=== PATIENT | male | born 1950 | race Caucasian/White ===

== ENCOUNTER 2024-07-15 12:49 | Outpatient (CLI) | payer MEDICARE, BC, SELFPAY ==
--- OUTSIDE RECORDS SUMMARY | 2024-07-15 13:01 | XMS_ITS | Clinical Summary ---
Author Organization [facility] Address [address], [facility] [address] [place] [address] Phone Care Team Providers Care Siebel Crm Developer Name Role Phone Gokul Sherman MD Unavailable Allergies No known active allergies Medications valACYclovir (VALTREX) 1 GM Tablet Take 1 g by mouth 2 times daily. 6 Active Tadalafil (CIALIS) 5 MG Tablet Take 5 mg by mouth daily. 7 Active fluticasone (FLONASE) 50 MCG/ACT Suspension USE 2 SPRAYS IN EACH NOSTRIL ONCE DAILY 3 8 Active aspirin 81 MG Chewable Tablet Take by mouth. 3 Active dilTIAZem (CARDIZEM CD) 240 MG CAPSULE SR 24 HR Take by mouth daily. 4 Active Methotrexate Sodium (METHOTREXATE, PF,) 50 MG/2ML Solution Take 25 mg by mouth once a week. Active folic acid (FOLVITE) 1 MG Tablet Take 1 mg by mouth daily. 6 Active hydroxychloroqu ine (PLAQUENIL) 200 MG Tablet Take 200 mg by mouth 2 times daily. Active nabumetone (RELAFEN) 500 MG Tablet Take 500 mg by mouth 2 times daily. Active InFLIXimab-dyyb (INFLECTRA) 100 MG Recon Soln by Intravenous route. Active amoxicillin (AMOXIL) 500 MG Capsule TAKE ONE CAPSULE BY MOUTH 3 TIMES A DAY 8 Active mesalamine (LIALDA) 1.2 GM Tablet Delayed Response Take 4 Tabs by mouth daily. Active Loratadine 10 MG Capsule Take by mouth as needed. Active vitamin E (TOCOPHEROL) 400 UNIT Capsule Take 400 Units by mouth daily. 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 Family History Medical History Relation Name Comments Alcohol Abuse Brother Cancer Mother Colon Cancer Mother Relation Name Status Comments Brother Father Mother Social History Tobacco Use Types Packs/Day Years Used Date Smoking Tobacco: Never Smokeless Tobacco: Never Alcohol Use Standard Drinks/Week Comments No 0 (1 standard drink = 0.6 oz pur e alcohol) PHQ-2 Answer Date Recorded PHQ-2 Score 0 02/19/2019 Sex and Gender Information Value Date Recorded Sex Assigned at Not on file Legal Sex Male 1:49 PM TIRE FINISHER Gender Identity Not on file Sexual Orientation Not on file Last Filed Vital Signs Vital Sign Reading Time Taken Comments Blood Pressure 124/70 05/21/2018 8:52 AM TIRE FINISHER Pulse 64 05/21/2018 8:52 AM TIRE FINISHER Temperature 37 C (98.6 F) 05/21/2018 8:52 AM TIRE FINISHER Respiratory Rate - - Oxygen Saturation 96% 05/21/2018 8:52 AM TIRE FINISHER Inhaled Oxygen Concentration - - Weight 75.8 kg (167 lb) 05/21/2018 8:52 AM TIRE FINISHER Height - - Body Mass Index - - Plan of Treatment Health Maintenance Due Date Last Done Comments Hepatitis C Virus (HCV) Screening 1950 TdaP Immunization 1950 SARS-COV-2 Immunization (#1) 1956 Zoster Immunization (1 of 2) 1970 Colonoscopy 1996 Colorectal Cancer Screening 1996 Cologuard 2001 Immunochemical Fecal Occult Blood 2001 Pneumococcal Immunization (5 0+ years) (1 of 1 - PCV) 2001 Respiratory Syncytial Virus (RSV) Immunization (Adult) (1 - Risk 60-74 years 1-dose series) 2011 Influenza Immunization (#1) 2024 Hepatitis B Immunization Aged Out No longer eligible based on patient's age to complete this topic Meningococcal Immunization (ACWY) Aged Out No longer eligible based on patient's age to complete this topic Rotavirus Immunization Aged Out No lo nger eligible based on patient's age to complete this topic Insurance MEDICARE [facility] Care Teams Siebel Crm Developer Relationship Specialty Start Date End Date Gokul Sherman MD [address] [facility] [address] [place] [address] Consulting Physician Oncology 05/08/18
--- OUTSIDE RECORDS SUMMARY | 2024-07-15 13:01 | XMS_ITS | Encounter Summary ---
Author Organization [facility] Address [facility] [place] [address] Care Team Providers Care Readiness Paraprofessional Name Role Phone Rui Le MD Primary Care Provider + [phone] Gt Gore MD Unavailable [phone] Rui Le MD Primary Care Provider + [phone] Jorge Barnett APRN Unavailable [phone] Tahir Devlin MD Primary Care Provider + [phone] Mohan Rodriguez MD Unavailable [phone] Gurmeet Zhou MD Unavailable Encounter Details Date Type Department Care Team (Late st Contact Info) Description 06/30/2015 Abstract [facility] [address] [place] [address] Gt Gore MD [address] [place] [address] Social History Tobacco Use Types Packs/Day Years Used Date Smoking Tobacco: Former Alcohol Use Standard Drinks/Week Comments No 0 (1 standard drink = 0.6 oz pur e alcohol) Sex and Gender Information Value Date Recorded Sex Assigned at Male 04/13/2018 10:17 AM CLAIMS AGENT RIGHT OF WAY Legal Sex Male 10:45 PM CDT Gender Identity Male 04/13/2018 10:17 AM CLAIMS AGENT [address] OF [address] Sexual Orientation Not on file 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 Not on file Not on file documented as of this encounter Plan of Treatment Not on file documented as of this encounter Visit Diagnoses Not on filedocumented in this encounter Additional Health Concerns Infection Onset Date Last Indicated Resolved Time COVID-19 Rule Out 04/20/2024 04/20/2024 04/20/2024 8:56 AM CLAIMS AGENT [address] OF [address] COVID-19 Rule Out 06/12/2024 06/12/2024 06/12/2024 12:05 PM CLAIMS AGENT RIGHT OF [address] documented as of this encounter Care Teams Readiness Paraprofessional Relationship Specialty Start Date End Date Rui Le MD PCP - General FAMILY PRACTICE 06/21/16 06/13/17 Rui Le MD [address] [place] [address] [place] [address] PCP - General FAMILY PRACTICE 06/14/17 11/06/19 Tahir Devlin MD [address] [place] [address] [place] [address] PCP - General FAMILY PRACTICE 11/07/19 07/09/24 Gt Gore MD [address] [place] [address] CARDIOVASCULAR DISEASE 06/14/17 Jorge Barnett APRN [address] [place] [address] [address] [place] [address] Nurse Practitioner NURSE PRACTITIONER 07/17/18 Mohan Rodriguez MD [address] [place] [address] Physician RHEUMATOLOGY 01/27/22 Gurmeet Zhou MD [address] [place] [address] Consulting Physician GASTROENTEROLOGY 01/27/22 documented as of this encounter
--- OUTSIDE RECORDS SUMMARY | 2024-07-15 13:01 | XMS_ITS | Encounter Summary ---
Author Organization [facility] Address [facility] [place] [address] Care Team Providers Care Yeast Maker Name Role Phone Rui Le MD Primary Care Provider + [phone] Gt Gore MD Unavailable [phone] Rui Le MD Primary Care Provider + [phone] Jorge Barnett APRN Unavailable [phone] Tahir Devlin MD Primary Care Provider + [phone] Mohan Rodriguez MD Unavailable [phone] Gurmeet Zhou MD Unavailable Encounter Details Date Type Department Care Team (Late st Contact Info) Description 06/10/2016 Abstract [facility] [address] [place] [id number] Natasha Johnson RN Social History Tobacco Use Types Packs/Day Years Used Date Smoking Tobacco: Former Alcohol Use Standard Drinks/Week Comments No 0 (1 standard drink = 0.6 oz pur e alcohol) Sex and Gender Information Value Date Recorded Sex Assigned at Male 04/13/2018 10:17 AM SUPERVISOR [employer] Legal Sex Male 10:45 PM CDT Gender Identity Male 04/13/2018 10:17 AM SUPERVISOR [employer] Sexual Orientation Not on file 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 Not on file Not on file documented as of this encounter Plan of Treatment Not on file documented as of this encounter Visit Diagnoses Not on filedocumented in this encounter Additional Health Concerns Infection Onset Date Last Indicated Resolved Time COVID-19 Rule Out 04/20/2024 04/20/2024 04/20/2024 8:56 AM SUPERVISOR [employer] COVID-19 Rule Out 06/12/2024 06/12/2024 06/12/2024 12:05 PM SUPERVISOR [employer] documented as of this encounter Care Teams Yeast Maker Relationship Specialty Start Date End Date Rui Le MD PCP - General FAMILY PRACTICE 06/21/16 06/13/17 Rui Le MD [address] [place], [place] [id number] PCP - General FAMILY PRACTICE 06/14/17 11/06/19 Tahir Devlin MD [address] [place] [address] PCP - General FAMILY PRACTICE 11/07/19 07/09/24 Gt Gore MD [address] [place] [address] CARDIOVASCULAR DISEASE 06/14/17 Jorge Barnett APRN [address] [facility] [address] [place] [address] Nurse Practitioner NURSE PRACTITIONER 07/17/18 Mohan Rodriguez MD [address] [address] Physician RHEUMATOLOGY 01/27/22 Gurmeet Zhou MD [address] [address] Consulting Physician GASTROENTEROLOGY 01/27/22 documented as of this encounter
--- OUTSIDE RECORDS SUMMARY | 2024-07-15 13:01 | XMS_ITS | Clinical Summary ---
Author Organization [facility] Address [address] [place] [address] Care Team Providers Care Support Service Tech Name Role Phone Maicol Freeman MD Unavailable [phone] Jorge Barnett APRN Unavailable [phone] Mohan Rodriguez MD Unavailable [phone] Gurmeet Zhou MD Unavailable Allergies No known active allergies Medications folic acid 1 MG tablet Take 1 tablet (1 mg total) by mouth daily. 06/30/19 16 Active nabumetone 500 MG tablet Take 1 tablet (500 mg total) by mouth 2 (two) times daily. Active B-D INS SYR ULTRAFINE 1CC/30G 30G X 1/2 1 ML Misc USE WEEKLY WITH METHOTREXATE 0 03/04/20 18 Active methotrexate 50 MG/2ML injection TAKE 1 ML WEEKLY IN JUICE 10/03/19 20 Active docusate sodium (COLACE) 100 MG capsule Take 1 capsule (100 mg total) by mouth daily as needed for Constipation. Active EQ FIBER SUPPLEMENT OR Active Certolizumab Pegol (CIMZIA PREFILLED SC) Inject 2 each into the skin monthly. Active dilTIAZem CD (CARDIZEM CD) 240 MG 24 hr capsuleIndication s:Benign essential hypertension,PAT (paroxysmal atrial tachycardia) (CMS/HCC HHS/HCC),SVT (supraventricular tachycardia) (CMS/HCC HHS/HCC) Take 1 capsule (240 mg total) by mouth daily. 90 capsule 1 01/03/20 24 Active dilTIAZem (CARDIZEM) 120 MG tabletIndications :Benign essential hypertension,PAT (paroxysmal atrial tachycardia) (CMS/HCC HHS/HCC),SVT (supraventricular tachycardia) (CMS/HCC HHS/HCC) Take 1 tablet (120 mg total) by mouth nightly at bedtime. 90 tablet 1 01/03/20 24 Active atorvastatin (LIPITOR) 40 MG tabletIndications :Mixed hyperlipidemia Take 1 tablet (40 mg total) by mouth nightly at bedtime. 90 tablet 1 01/03/20 24 Active loratadine (CLARITIN) 10 MG tabletIndications :Environmental allergies Take 1 tablet (10 mg total) by mouth daily. 90 tablet 1 01/03/20 24 Active fluticasone propionate (FLONASE) 50 MCG/ACT nasal sprayIndications: Environmental allergies INHALE 2 SPRAYS IN EACH NOSTRIL EVERY DAY 48 mL 1 01/03/20 24 Active tadalafil (CIALIS) 5 MG tabletIndications :Benign prostatic hyperplasia with urinary frequency,Erectil e dysfunction, unspecified erectile dysfunction type Take 1 tablet (5 mg total) by mouth daily. 90 tablet 1 01/03/20 24 Active valACYclovir (VALTREX) 500 MG tabletIndications :Herpes Take 1 tablet (500 mg total) by mouth daily. 90 tablet 1 01/03/20 24 Active aspirin 81 MG chewable tabletIndications :PAT (paroxysmal atrial tachycardia) (CMS/HCC HHS/HCC),SVT (supraventricular tachycardia) ([facility] HHS/HCC) Chew 1 tablet (81 mg total) by mouth daily. 90 tablet 1 01/03/20 24 Active dextromethorphan- guaiFENesin ER (MUCINEX DM) 30-600 MG TABLET SR 12 HR 12 hr tabletIndications :Acute cough,Fluid level behind tympanic membrane of both ears,Acute viral bronchitis Take 1 tablet by mouth every 12 (twelve) hours as needed. 28 tablet 06/12/19 25 Active methylPREDNISolon e, MAGDA, (MEDROL DOSEPAK) 4 MG tabletIndications :Acute sore throat,Acute cough,Fluid level behind tympanic membrane of both ears,Acute viral bronchitis Take 1 tablet (4 mg total) by mouth daily. 6 TABLETS ON DAY ONE, 5 TABLETS DAY TWO, 4 TABLETS DAY THREE, 3 TABLETS DAY FOUR, 2 TABLETS DAY FIVE, AND 1 TABLET DAY SIX 1 each 06/12/19 25 Active mesalamine EC (LIALDA) 1.2 g Tab EC tabletIndications :IBD (inflammatory bowel disease) Take 2 tablets (2.4 g total) by mouth daily with breakfast. with food 180 tablet 3 07/03/19 25 026 Active certolizumab pegol (CIMZIA) 2 X 200 MG injectionIndicati ons:IBD (inflammatory bowel disease) Inject 1 mL (200 mg total) into the skin every 28 days. 1 kit 11 07/03/19 25 Active mesalamine EC (LIALDA) 1.2 g Tab EC tabletIndications :IBD (inflammatory bowel disease) TAKE 2 TABLETS (2.4 G TOTAL) BY MOUTH DAILY WITH BREAKFAST. WITH FOOD 180 tablet 04/08/20 24 025 Discontinu ed(Reorder ) benzonatate (TESSALON PERLES) 100 MG capsuleIndication s:Acute cough,Acute viral bronchitis Take 1 capsule (100 mg total) by mouth 3 (three) times daily as needed for Cough. 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 History of umbilical hernia 04/13/2018 Rheumatoid arthritis ([facility]) 7 Overview (04/13/2018): Date Onset: 12/19/2016 Hypothyroidism 06/15/2015 Overview (04/13/2018): Date Onset: 06/15/2015 BPH (benign prostatic hyperplasia) 06/04/2014 Overview (04/13/2018): Date Onset: 06/04/2014 Erectile dysfunction 04/05/2013 Overview (04/13/2018): Date Onset: 04/05/2013 Date Onset: 06/15/2015 Benign essential hypertension 06/30/2011 Overview (04/13/2018): Date Onset: 12/19/2016 Raynaud's syndrome 06/30/2011 Mixed hyperlipidemia 06/30/2011 PAT (paroxysmal atrial tachycardia) ([facility] HHS /HCC) SVT (supraventricular tachycardia) ([facility]) Resolved Problems Problem Noted Date Diagnosed Date Resolved Date Squamous cell carcinoma in s itu (SCCIS) of skin 05/21/2018 11/07/2019 Prostatism 06/15/2015 11/07/2019 Overview (04/13/2018): Date Onset: 06/15/2015 Hyperlipidemia 11/07/2019 HTN (hypertension) 0 Encounters Date Type Department Care Team Description [facility] [address], [address] [place] [address] Gurmeet Zhou MD Prior Authorization 07/03/2024 2:20 PM NUCLEAR MEDICINE PET CT TECHNOLOGIST Office Visit [facility] [address] [place] [address] Gurmeet Zhou MD Follow Up (Yearly follow up) 07/03/2024 Travel 06/17/[address] [place] [address] Tahir Devlin MD Follow Up Call 06/12/2024 12:00 PM NUCLEAR MEDICINE PET CT TECHNOLOGIST Office Visit [address] [place] [address] Adri Reis, Tahir Alejandro MD Cough (Pt states all his sx have come and gone since ); Runny Nose; Congestion (head); Sore Throat (Pt states it comes and goes with the cough. ) 06/12/2024 Travel 05/27/2024 1:48 PM [address]AR MEDICINE PET CT TECHNOLOGIST - 05/27/2024 11:59 PM NUCLEAR MEDICINE PET CT TECHNOLOGIST Hospital Encounter [facility] [address] [place] [address] Mohan Rodriguez MD Discharge Disposition: Home or Self Care (Routine Discharge) 05/27/2024 Orders Only [facility] [address] [place] [address] Mohan Rodriguez MD 05/27/2024 Travel 05/06/2024 11:35 AM NUCLEAR MEDICINE PET CT TECHNOLOGIST - 05/06/2024 11:59 PM NUCLEAR MEDICINE PET CT TECHNOLOGIST Hospital Encounter [facility] [address] [place] [address] Mohan Rodriguez MD Discharge Disposition: Home or Self Care (Routine Discharge) 05/06/2024 Orders Only [facility] [address] [place] [address] Mohan Rodriguez MD 05/06/2024 Travel 04/20/2024 8:00 AM NUCLEAR MEDICINE PET CT TECHNOLOGIST Office Visit [facility] [address] [place] [address] Shantal Devlin V, PARLIAMENTARY ARCHIVIST- Cough (Noted for 5 days. ); Post Nasal Drainage; Ear Pressure; Ear Concern (Left ear pain/); Body Aches 04/20/2024 Travel from Last 3 Months Immunizations Name Administration Dates Next Due Influenza (Generic) 02/26/2018,04/26/2016,2014 Influenza Adult (Generic) 05/15/2019,04/26/2016 Pneumococcal (Pneumovax 23) 02/26/2018 Pneumococcal (Prevnar 13) 11/07/2019 Shingrix 11/21/2018 Zoster (Zostavax) 50982 Unt/0.65Ml 04/05/2013 Zoster Unspecified Formulation 08/06/2018 Family History Medical History Relation Comments Colon Cancer Mother Relation Status Comments Brother 1 CAD, PCI Brother 2 Alive CABG x2 Brother 3 Alive Father (Age 69) colon infectio n Mother (Age 29) Colon Cancer Social History Tobacco Use Types Packs/Day Years Used Date Smoking Tobacco: Former Cigarettes Q uit: 06/21/1998 Smokeless Tobacco: Never Tobacco Cessation:Counseling Given: Yes Alcohol Use Standard Drinks/Week Comments No 0 (1 standard drink = 0.6 oz pur e alcohol) PHQ-2 Answer Date Recorded Patient Health Questionnaire-2 Score 0 07/03/2024 Sex and Gender Information Value Date Recorded Sex Assigned at Male 04/13/2018 10:17 AM NUCLEAR MEDICINE PET CT TECHNOLOGIST Legal Sex Male 10:45 PM CDT Gender Identity Male 04/13/2018 10:17 AM NUCLEAR MEDICINE PET CT TECHNOLOGIST Sexual Orientation Not on file 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 Not on file Not on file Not on file Not on file Not on file Not on file Not on file Last Filed Vital Signs Vital Sign Reading Time Taken Comments Blood Pressure 138/71 07/03/2024 2:28 PM NUCLEAR MEDICINE PET CT TECHNOLOGIST Pulse 72 07/03/2024 2:28 PM NUCLEAR MEDICINE PET CT TECHNOLOGIST Temperature 37.7 C (99.8 F) 07/03/2024 2:28 PM NUCLEAR MEDICINE PET CT TECHNOLOGIST Respiratory Rate 12 06/12/2024 11:30 AM NUCLEAR MEDICINE PET CT TECHNOLOGIST Oxygen Saturation 98% 07/03/2024 2:28 PM NUCLEAR MEDICINE PET CT TECHNOLOGIST Inhaled Oxygen Concentration - - Weight 77.1 kg (170 lb) 07/03/2024 2:28 PM NUCLEAR MEDICINE PET CT TECHNOLOGIST Height 167.6 cm (5' 6 ) 07/03/2024 2:28 PM NUCLEAR MEDICINE PET CT TECHNOLOGIST Body Mass Index 27.44 07/03/2024 2:28 PM NUCLEAR MEDICINE PET CT TECHNOLOGIST Plan of Treatment Health Maintenance Due Date Last Done Comments Hepatitis C 1969 DTaP, Tdap and Td Vaccines (1 - Tdap) 1970 RSV Immunization or 60+ Years (1 - Risk 60-74 years 1-dose series) 2011 Annual Medicare Wellness Visit 2016 Zoster Vaccines (3 of 3) 01/16/2019 019, 08/06/2018, 08/06/2018, Additional history exists COVID-19 Vaccine ( season) 2024 Influenza Adult (#1) 2024 05/15/2019, 02/26/2018, 04/26/2016, Additional history exists Colorectal Cancer Screening Colonoscopy (10 Years) 03/14/2033 03/14/2023, 01/22/2019 AAA SCREENING Completed 06/21/2016 Pneumococcal Vaccine: 65+ Years Completed 11/07/2019, 02/26/2018 PHQ-2 (Physician [place]) Completed 07/03/2024 Meningococcal B Vaccine Aged Out No l onger eligible based on patient's age to complete this topic Meningococcal Vaccine Aged Out No enrique momo eligible based on patient's age to complete this topic RSV Immunizations Under 20 Months Aged Out No longer eligible based on patient's age to complete this topic Medical Devices Implanted Type Area Geophysical Support Specialist Device Identifier Shelf Expiration Date Model / Serial / Lot Clip Resolution 360 Deg 2.8mm X 235cm - [id number] Implanted:Qty : 2 on 03/14/2023 by Gurmeet Zhou MD at [facility] Clip Implant Nex[employer] RIGO 02/14/2025 [id number] / / [id number] Plug Large Mesh Perfix 1.6 X 1.90 - [id number] Implanted:Qty : 1 on 03/28/2022 by Bonilla Gupta MD at [facility] Mesh [employer] [id number] 06/01/2025 [id number] / / [id number] Mesh Bard Plug Xlarge [id number] - [id number] Implanted:Qty : 1 on 03/28/2022 by Bonilla Gupta MD at [facility] Mesh Left: Groin [employer] [id number] 01/30/2026 [id number] / / [id number] Procedures Procedure Name Priority Date/Time Associated Diagnosis Comments CORONAVIRUS (COVID-19) INFLUENZA A & B ANTIGEN IA PANEL Routine 06/12/2024 Acute sore throat Acute cough STREP A RAPID Routine 06/12/2024 Acute sore throat RETICULOCYTE CT, AUTO STAT 05/27/2024 1:57 PM NUCLEAR MEDICINE PET CT TECHNOLOGIST Nutritional anemia CBC W/DIFF AUTOMATED STAT 05/27/2024 1:57 PM NUCLEAR MEDICINE PET CT TECHNOLOGIST Nutritional anemia VITAMIN B12 / FOLATE STAT 05/27/2024 1:57 PM NUCLEAR MEDICINE PET CT TECHNOLOGIST Nutritional anemia IRON SAT PANEL (IRON,IBC,%SAT) STAT 05/27/2024 1:57 PM NUCLEAR MEDICINE PET CT TECHNOLOGIST Nutritional anemia FERRITIN STAT 05/27/2024 1:57 PM NUCLEAR MEDICINE PET CT TECHNOLOGIST Nutritional anemia C-REACTIVE PROTEIN Routine 05/06/2024 11 :38 AM NUCLEAR MEDICINE PET CT TECHNOLOGIST Rheumatoid arthritis without rheumatoid factor, multiple sites ([facility]) SED RATE, ERYTHROCYTE (ESR) Routine 05/06/2024 11:38 AM NUCLEAR MEDICINE PET CT TECHNOLOGIST Rheumatoid arthritis without rheumatoid factor, multiple sites ([facility]) COMPREHENSIVE METABOLIC PANEL Routine 05/06/2024 11:38 AM NUCLEAR MEDICINE PET CT TECHNOLOGIST Rheumatoid arthritis without rheumatoid factor, multiple sites ([facility]) CBC W/DIFF AUTOMATED Routine 05/06/2024 11:38 AM NUCLEAR MEDICINE PET CT TECHNOLOGIST Rheumatoid arthritis without rheumatoid factor, multiple sites ([facility]) INFLUENZA A & B Routine 04/20/2024 Viral upper respiratory illness CORONAVIRUS (COVID-19) ANTIGEN Routine 04/20/2024 Viral upper respiratory illness COLONOSCOPY GENERIC (SCAN ORDER) Routine 01/22/2019 US AORTA SCREEN 06/21/2016 8:49 AM NUCLEAR MEDICINE PET CT TECHNOLOGIST from Last 3 Months or Most Recently Relevant to Health Maintenance Results * CORONAVIRUS (COVID-19) INFLUENZA A & B ANTIGEN IA PANEL (06/12/2024) CORONAVIRUS ANTIGEN IA NEGATIVE [facility] ([address] [place] INFLUENZA [facility] NE[facility]GATIVE [facility] [address] ([address]), [place] INFLUENZA B NEGATIVE NEGATIVE [facility] [address] ([address]), [place] Internal Control: [facility] [place] ([address]), [place] NASAL STRUCTURE / Unknown 06/12/2024 us Tahir Devlin MD MICROBIOLOGY - GENERAL ORDER FARHAT Final Result [facility] ([address]), [address] [address], * STREP A RAPID (06/12/2024) Pathologist [facility] RAPID STREP TEST NEGATIVE NEGATIVE [facility] ([address]), [place] Internal Control: VALID VALID [facility] ([address]), [place] STRUCTURE OF ANTERIOR PORTION OF NECK / Unknown 06/12/2024 Tahir Devlin MD MICROBIOLOGY - GENERAL ORDER FARHAT Final Result [facility] ([address]), [address] [place] [address], [place] [phone] * (ABNORMAL) VITAMIN B12 / FOLATE (05/27/2024 1:57 PM NUCLEAR MEDICINE PET CT TECHNOLOGIST) Pathologist [facility] VITAMIN B12 S/P/B 933 254 - 1,320 PG/ML 05/27/2024 8:27 PM NUC[address]AR MEDICINE PET CT TECHNOLOGIST [facility] FOLATE 37.1(H) 3.1 - 17.5 NG/ML 05/27/2024 8:27 PM NUCLEAR MEDICINE PET CT TECHNOLOGIST [facility] 05/27/2024 1:57 PM NUCLEAR MEDICINE PET CT TECHNOLOGIST Mohan Rodriguez MD LABORATORY Final Resul t [facility] [address] [place] [address], [place] [phone] * IRON SAT PANEL (IRON,IBC,%SAT) (05/27/2024 1:57 PM NUCLEAR MEDICINE PET CT TECHNOLOGIST) Pathologist [facility] IRON 86 65.0 - 175.0 MCG/DL 05/27/2024 7:45 PM NUCLEAR MEDICINE PET CT TECHNOLOGIST [facility] IRON BINDING CAPACITY 339 250 - 450 MCG/DL 05/27/2024 7:45 PM NUCLEAR MEDICINE PET CT TECHNOLOGIST [facility] IRON SATURATION 25 20 - 55 % 7:45 PM NUCLEAR MEDICINE PET CT TECHNOLOGIST [facility] 05/27/2024 1:57 PM NUCLEAR MEDICINE PET CT TECHNOLOGIST Mohan Rodriguez MD LABORATORY Final Resul t [facility] [address] [place] [address], [place] [phone] * RETICULOCYTE CT, AUTO (05/27/2024 1:57 PM NUCLEAR MEDICINE PET CT TECHNOLOGIST) RETICULOCYTE COUNT 0.9 0.4 - 3.8 % 05/27/2024 2:25 PM NUCLEAR MEDICINE PET CT TECHNOLOGIST [facility] ABSOLUTE RETICULOCYTE 0.03 0.02 - 0.13 x10'6/uL 05/27/2024 2:25 PM NUCLEAR MEDICINE PET CT TECHNOLOGIST [facility] IMMATURE RETIC FRACTION 4.2 2.3 - 13.4 % 05/27/2024 2:25 PM NUCLEAR MEDICINE PET CT TECHNOLOGIST [facility] RETIC HGB 35.0 28.2 - 36.6 PG 05/27/2024 2:25 PM NUCLEAR MEDICINE PET CT TECHNOLOGIST [facility] 05/27/2024 1:57 PM NUCLEAR MEDICINE PET CT TECHNOLOGIST Mohan Rodriguez MD LABORATORY Final Resul t Performing Organization Address City/Va Hospital/ZIP Co de Phone Number [facility] [address] [place] [address] [place] [address], * (ABNORMAL) CBC W/DIFF AUTOMATED (05/27/2024 1:57 PM NUCLEAR MEDICINE PET CT TECHNOLOGIST) Only the most recent of2 resultswithin the time period is included. WBC 6.85 4.50 - 11.00 x10'3/uL 05/27/2024 2:25 PM NUCLEAR MEDICINE PET CT TECHNOLOGIST [facility] RBC 3.72(L) 4.50 - 5.90 x10'6/uL 05/27/2024 2:25 PM NUCLEAR MEDICINE PET CT TECHNOLOGIST [facility] HGB 11.9(L) 14.0 - 18.0 G/DL 05/27/2024 2:25 PM [facility] HCT 37.4(L) 43.0 - 54.0 % 05/27/2024 2:25 PM [facility] MCV 100.5(H) 80.0 - 100.0 FL 05/27/2024 2:25 PM [facility] MCH 32.0 26.0 - 34.0 PG 05/27/2024 2:25 PM [facility] MCHC 31.8 31.0 - 37.0 G/DL 05/27/2024 2:25 PM [facility] RDW 13.2 11.6 - 14.8 % 05/27/2024 2:25 PM [facility] PLT 241 130 - 400 x10'3/uL 05/27/2024 2:25 PM [facility] MPV 9.5 7.0 - 12.0 FL 05/27/2024 2:25 PM [facility] CBC COMMENT AUTOMATED RBC MORPHOLOGY AND PLATELET EVALUATION NORMAL 05/27/2024 2:25 PM [facility] NEUTROPHILS % 52.4 40.0 - 74.0 % 05/27/2024 2:25 PM [facility] LYMPHOCYTES % 34.5 14.0 - 46.0 % 05/27/2024 2:25 PM [facility] MONOCYTES % 10.1 4.0 - 13.0 % 05/27/2024 2:25 PM [facility] EOSINOPHILS 2.5 0.0 - 7.0 % 05/27/2024 2:25 PM [facility] BASOPHILS 0.4 0.0 - 3.0 % 05/27/2024 2:25 PM [facility] IMMATURE GRANS % 0.1 0.0 - 0.43 % 05/27/2024 2:25 PM [facility] NRBC % 0.0 % 05/27/2024 2:25 PM [facility] ABS. NEUTROPHILS TOTAL 3.59 1.69 - 7.81 x10'3/uL 05/27/2024 2:25 PM NUCLEAR MEDICINE PET CT TECHNOLOGIST [facility] ABS. LYMPHOCYTES 2.36 0.21 - 5.42 x10'3/uL 05/27/2024 2:25 PM NUCLEAR MEDICINE PET CT TECHNOLOGIST [facility] ABS. MONOCYTES 0.69 0.04 - 1.37 x10'3/uL 05/27/2024 2:25 PM NUCLEAR MEDICINE PET CT TECHNOLOGIST [facility] ABS. EOSINOPHILS 0.17 0.00 - 0.68 x10'3/uL 05/27/2024 2:25 PM NUCLEAR MEDICINE PET CT TECHNOLOGIST [facility] ABS. BASOPHILS 0.03 0.00 - 0.08 x10'3/uL 05/27/2024 2:25 PM NUCLEAR MEDICINE PET CT TECHNOLOGIST [facility] ABS. IMMATURE GRANULOCYTES 0.01 0.00 - 0.06 x10'3/uL 05/27/2024 2:25 PM NUCLEAR MEDICINE PET CT TECHNOLOGIST [facility] ABS. NUCLEATED RBC'S 0.00 0.00 - 0.01 x10'3/uL 05/27/2024 2:25 PM NUCLEAR MEDICINE PET CT TECHNOLOGIST [facility] 05/27/2024 1:57 PM NUCLEAR MEDICINE PET CT TECHNOLOGIST Mohan Rodriguez MD LABORATORY Final Resul t [address] [place] [address], * FERRITIN (05/27/2024 1:57 PM NUCLEAR MEDICINE PET CT TECHNOLOGIST) FERRITIN 46.0 8.0 - 388.0 NG/ML 05/27/2024 7:45 PM NUCLEAR MEDICINE PET CT TECHNOLOGIST [facility] 05/27/2024 1:57 PM NUCLEAR MEDICINE PET CT TECHNOLOGIST Mohan Rodriguez MD LABORATORY Final Resul t [facility] [address] [place] [address], [place] [phone] * SED RATE, ERYTHROCYTE (ESR) (05/06/2024 11:38 AM NUCLEAR MEDICINE PET CT TECHNOLOGIST) [facility] ESR 15 <20 MM/HR 05/06/2024 2:40 PM NUCLEAR MEDICINE PET CT TECHNOLOGIST [facility] Comment:Testing performed on [employer] iSED. 05/06/2024 11:3 8 AM NUCLEAR MEDICINE PET CT TECHNOLOGIST Mohan Rodriguez MD LABORATORY Final Resul t [facility] [address] [place] [id number], * (ABNORMAL) COMPREHENSIVE METABOLIC PANEL (05/06/2024 11:38 AM NUCLEAR MEDICINE PET CT TECHNOLOGIST) [facility] GLUCOSE 79 70 - 99 MG/DL 05/06/2024 12:04 PM [facility] BUN 18 7 - 18 MG/DL 05/06/2024 12:04 PM [facility] CREATININE S/P/B 1.11 0.50 - 1.20 MG/DL 05/06/2024 12:04 PM [facility] SODIUM S/P/B 136 136 - 145 MMOL/L 05/06/2024 12:04 PM NUCLEAR MEDICINE PET CT TECHNOLOGIST [facility] POTASSIUM S/P/B 3.9 3.5 - 5.1 MMOL/L 05/06/2024 12:04 PM [facility] CHLORIDE S/P/B 100 100 - 108 MMOL/L 05/06/2024 12:04 PM [facility] CO2 31.3 21.0 - 32.0 MMOL/L 05/06/2024 12:04 PM [facility] CALCIUM S/P/B 8.4(L) 8.5 - 10.1 MG/DL 05/06/2024 12:04 PM [facility] BILIRUBIN TOTAL S/P/B 0.4 0.2 - 1.2 MG/DL 05/06/2024 12:04 PM [facility] Comment: THIS ASSAY IS NOT RECOMMENDED FOR PATIENTS UNDERGOING TREATMENT WITH ELTROMBOPAG DUE TO THE POTENTIAL FOR FALSELY ELEVATED RESULTS. TOTAL PROTEIN S/P/B 6.4 6.4 - 8.2 G/DL 05/06/2024 12:04 PM [facility] ALBUMIN S/P/B 3.0(L) 3.4 - 5.0 G/DL 05/06/2024 12:04 PM [facility] AST 22 15 - 37 U/L 05/06/2024 12:04 PM [facility] ALT 20 16 - 60 U/L 05/06/2024 12:04 PM [facility] ALKALINE PHOSPHATASE S/P/B 99 50 - 136 U/L 05/06/2024 12:04 PM [facility] ANION GAP 4.7(L) 5.0 - 15.0 MMOL/L 05/06/2024 12:04 PM [facility] BUN CREATININE RATIO 16.2 6 - 26 05/06/2024 12:04 PM [facility] A/G RATIO 0.9(L) 1.0 - 2.5 RATIO 05/06/2024 12:04 PM [facility] GFR ESTIMATE 71(L) >90 ML/MIN/1.7 3 M2 05/06/2024 12:04 PM [facility] Comment: NOTE: eGFR is not calculated for patients <18 years of age. This is an estimated GFR calculation using the new CKD EPI creatinine equation without race and so does not require a correction factor for race. This estimated GFR should not be used for calculating drug doses. 05/06/2024 11:3 8 AM NUCLEAR MEDICINE PET CT TECHNOLOGIST us Mohan Rodriguez MD LABORATORY Final Resul t [facility] [place] [facility] [address] [place] [address], [place] * (ABNORMAL) C-REACTIVE PROTEIN (05/06/2024 11:38 AM NUCLEAR MEDICINE PET CT TECHNOLOGIST) Pathologist [facility] C-REACTIVE PROTEIN 0.89(H) <0.29 mg/dL 05/06/2024 2:50 PM NUCLEAR MEDICINE PET CT TECHNOLOGIST [facility] 05/06/2024 11:3 8 [address]UC[address] TECHNOLOGIST Mohan Rodriguez MD LABORATORY Final Resul t [facility] [address] [place] [address], [place] [phone] * CORONAVIRUS (COVID-19) ANTIGEN (04/20/2024) Pathologist [facility] CORONAVIRUS ANTIGEN IA NEGATIVE NEGATIVE [facility] [place] Internal Control: VALID VALID [facility] ([address]), [place] NASAL NASAL STRUCTURE / Unknown 04/20/2024 RAMIRO ChurchillP-GURJIT MICROBIOLOGY - GENERAL ORDERABLES Final Result [facility] ([address]), [address] [address], [place] [phone] * INFLUENZA A & B (04/20/2024) Pathologist [facility] IN[facility] NE[facility] [place] INFLUENZA B NE[facility]IVE [facility] ([address]), [place] Internal Control: [facility] ([address]), [place] NASAL STRUCTURE / Unknown 04/20/2024 Shantal Devlin V PARLIAMENTARY ARCHIVIST-BC MICROBIOLOGY - GENERAL ORDERABLES Final Result [facility] ([address], [place] [address], * COLONOSCOPY (01/22/2019) us Documents Scanned SCANNING Edited Result - Final * [place] [facility] SCREEN (06/21/2016 8:49 AM NUCLEAR MEDICINE PET CT TECHNOLOGIST) Anatomical Region Laterality Modality Abdomen Ultrasound 06/21/2016 8:49 AM NUCLEAR MEDICINE PET CT TECHNOLOGIST Narrative 06/21/2016 12:00 AM NUCLEAR MEDICINE PET CT TECHNOLOGIST Aorta Limited Vascular Report Pat.Name: HANANE AVITIA Pat.ID: [id number] St.Date: 06/21/2016 Refer.MD: MAICOL FREEMAN Exam Time: 8:49:00 AM Study Type:DUPLEX SCAN AORTA LIMITED Age: 1 1950,66Y Sex: MALE Sonogrphr: Rajendra Chacon RVT Pat. Stat.:Outpatient ICD - 9: I71.4 AAA without Rupture CPT - 4: 08638 Reason for Study:AAA Screening Race: C ++++++++++++++++++++++++++++++++++++ SUMMARY: ++++++++++++++++++++++++++++++++++++ AO: No evidence of abdominal aortic aneurysm. AO: No stenosis noted R Iliac: No evidence of Iliac artery aneurysm or ectasia noted. R Iliac: No stenosis noted L Iliac: No evidence of Iliac artery aneurysm or ectasia noted. L Iliac: No stenosis noted ++++++++++++++++++++++++++++++++++++ FINDINGS: ++++++++++++++++++++++++++++++++++++ AO: No evidence of abdominal aortic aneurysm. No stenosis noted R Iliac: No evidence of Iliac artery aneurysm or ectasia noted. No stenosis noted L Iliac: No evidence of Iliac artery aneurysm or ectasia noted. No stenosis noted ++++++++++++++++++++++++++++++++++++ MEASUREMENTS: ++++++++++++++++++++++++++++++++++++ DOPPLER Supra AO Supra AO PSV 50 cm/s Supra AO Dim 2 2.7 cm Supra AO Dim 1 2.7 cm Juxta AO Juxta AO PSV 61 cm/s Juxta AO Dim 2 2.4 cm Juxta AO Dim 1 2.4 cm Dist AO Dist AO PSV 48 cm/s Dist AO Dim 2 1.9 cm Dist AO Dim 1 1.9 cm Rt Prox Common Iliac Common Iliac PS 105 cm/s Common Iliac Di 1.1 cm Common Iliac Di 1.1 cm Lt Prox Common Iliac Common Iliac PS 93 cm/s Common Iliac Di 1.1 cm Common Iliac Di 1.1 cm Signed 06/21/2016 07:57 PM Heber Burns M.D. Procedure Note Heber Burns MD - 06/21/2016 Aorta Limited Vascular Report Pat.Name: HANANE AVITIA Pat.ID: [id number] St.Date: 06/21/2016 Refer.MD: MAICOL FREEMAN Exam Time: 8:49:00 AM Study Type:DUPLEX SCAN AORTA LIMITED Age: 1 1950,66Y Sex: MALE Sonogrphr: Rajendra Chacon RVT Pat. Stat.:Outpatient ICD - 9: I71.4 AAA without Rupture CPT - 4: 75016 Reason for Study:AAA Screening Race: C ++++++++++++++++++++++++++++++++++++ SUMMARY: ++++++++++++++++++++++++++++++++++++ AO: No evidence of abdominal aortic aneurysm. AO: No stenosis noted R Iliac: No evidence of Iliac artery aneurysm or ectasia noted. R Iliac: No stenosis noted L Iliac: No evidence of Iliac artery aneurysm or ectasia noted. L Iliac: No stenosis noted ++++++++++++++++++++++++++++++++++++ FINDINGS: ++++++++++++++++++++++++++++++++++++ AO: No evidence of abdominal aortic aneurysm. No stenosis noted R Iliac: No evidence of Iliac artery aneurysm or ectasia noted. No stenosis noted L Iliac: No evidence of Iliac artery aneurysm or ectasia noted. No stenosis noted ++++++++++++++++++++++++++++++++++++ MEASUREMENTS: ++++++++++++++++++++++++++++++++++++ DOPPLER Supra AO Supra AO PSV 50 cm/s Supra AO Dim 2 2.7 cm Supra AO Dim 1 2.7 cm Juxta AO Juxta AO PSV 61 cm/s Juxta AO Dim 2 2.4 cm Juxta AO Dim 1 2.4 cm Dist AO Dist AO PSV 48 cm/s Dist AO Dim 2 1.9 cm Dist AO Dim 1 1.9 cm Rt Prox Common Iliac Common Iliac PS 105 cm/s Common Iliac Di 1.1 cm Common Iliac Di 1.1 cm Lt Prox Common Iliac Common Iliac PS 93 cm/s Common Iliac Di 1.1 cm Common Iliac Di 1.1 cm Signed 06/21/2016 07:57 PM Heber Burns M.D. 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 Advance Directives and Living Will 01/22/2019 12:00 AM ADVANCED DIRECTIVES Advance Directives and Living Will 04/06/2018 12:00 AM ADVANCED DIRECTIVES Advance Directives and Living Will 07/28/2015 12:00 AM ADVANCED DIRECTIVES Advance Directives and Living Will 06/17/2014 12:00 AM ADVANCED DIRECTIVES Advance Directives and Living Will 04/25/2014 12:00 AM ADVANCED DIRECTIVES Advance Directives and Living Will 09/03/2013 12:00 AM ADVANCED DIRECTIVES Care Teams Support Service Tech Relationship Specialty Start Date End Date Maicol Freeman MD [address] [place] [id number] CARDIOVASCULAR DISEASE 06/14/17 Jorge Barnett APRN [address] [place] [address] [address] Nurse Practitioner NURSE PRACTITIONER 07/17/18 Mohan Rodriguez MD [address] [place] [address] Physician RHEUMATOLOGY 01/27/22 Gurmeet Zhou MD [address] [address] Consulting Physician GASTROENTEROLOGY 01/27/22
--- OUTSIDE RECORDS SUMMARY | 2024-07-15 13:01 | XMS_ITS | Continuity of Care Document ---
Author Organization [facility] Address [address] [place] [address] Phone Care Team Providers Care Tax Evaluator Name Role Phone Magdalena Hernandes OD Unavailable Unavailable Allergies, Adverse Reactions, Alerts Substance Reaction Status Criticality No Known Allergies Active No Inform ation Medications Medication Instructions Dosage Effective Dates (start - stop) Status Comments meloxicam 15 mg tablet take 1 tablet by oral route every day 15 MG - Active Tirosint 50 mcg capsule take 1 capsule by oral route every day 50 MCG - Active folic acid 1 mg tablet take 1 tablet by ORAL route every 8 hours as needed 50 MG - Active methotrexate sodium 2.5mg tablet Take one tablet by mouth daily with food - Active Procedures Procedure Date Eye Exam [facility] 16 Advance Directives Directive Yes / No Effective Date File Name No Information Encounters Encounter Description Practice Location Reason(s) For Visit Diagnoses Date Provider Providers Copied on Encounter [facility], [address] [place] [address], [facility], tel: [phone] [facility] No Information 6 Cecilio Magdalena. [address] [place] [address], [address]. tel: [phone] [facility], [address] [place] [address], [address], [place] tel: [phone] [facility] Age-related nuclear cataract, bilateralMyopia, bilateralRegular astigmatism, bilateralPresbyopiaCo njunctival hemorrhage, left eye 6 Cecilio Nichols. [address] [place] [address], [address]. tel: [phone] [facility], [address] [place] [address], [facility], tel: [phone] [facility] No Information 6 Cecilio Nichols. [address] [place] [address], [facility]. tel: [phone] [facility], [address] [place] [address], [facility], [place] tel: [phone] [facility] No Information 6 Maritza Salmon. [address] [place] [address], [facility]. tel: [phone] Family History Family Member Type Diagnosis Age At Onset No Information Payers Payer name Insurance type Covered green party ID Authoriza tion(s) No Information Social History Type Description Quantity Date Captured Comments Sex Male Smoking Status No Information Chief Complaint And Reason For Visit No Information History Of Present Illness Encounter Date Complaint History Of Prese nt Illness No Information Instructions Date Instruction Additional Infor mation No Information Assessments Type Assessment Date No Information
[2024-07-15 15:39] LABS: Anion Gap 13 mmol/L (4-12); Blood Urea Nitrogen 13 mg/dL (9-20); Calcium 8.8 mg/dL (8.4-10.2); Carbon Dioxide 24 mmol/L (22-30); Chloride 99 mmol/L (98-107); Estimated Glomerular Filt Rate > 60; Glucose 106 mg/dL (65-110); Potassium 3.9 mmol/L (3.4-5.0); Sodium 136 mmol/L (137-145)
== END 2024-07-15 12:50 | disposition home or self-care (01) ==
LOC: ANHLAB 12:50
PROVIDERS: PCP Family Medicine; Visit Provider Family Medicine
DX: R34 Anuria and oliguria (principal)
CPT/HCPCS: 36415; 80048

== ENCOUNTER 2024-08-12 14:54 | Outpatient (CLI) | payer MEDICARE, BC, SELFPAY ==
--- NOTE | ~2024-08-12 | US_ITS ---
EXAMINATION: US venous doppler LE RT DATE: 08/12/2024 15:27 INDICATION: Right lower limb swelling. TECHNIQUE: Grayscale ultrasound images without and with compression and Doppler ultrasound images of the right lower extremity veins were obtained. COMPARISON: None. FINDINGS: The visualized portions of right common femoral vein, profunda (deep) femoral vein, femoral vein, pop liteal vein, peroneal veins, posterior tibial veins, and greater saphenous vein outflow are patent. IMPRESSION: 1. No deep venous thrombosis. Reviewed, dictated and finalized at location B.
--- OUTSIDE RECORDS SUMMARY | 2024-08-12 17:34 | XMS_ITS | Clinical Summary ---
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 Gender Identity Not on file Sexual Orientation Not on file Last Filed Vital Signs Vital Sign Reading Time Taken Comments Blood Pressure 124/70 05/21/2018 8:52 AM FLYING TEACHER Pulse 64 05/21/2018 8:52 AM FLYING TEACHER Temperature 37 C (98.6 F) 05/21/2018 8:52 AM FLYING TEACHER Respiratory Rate - - Oxygen Saturation 96% 05/21/2018 8:52 AM FLYING TEACHER Inhaled Oxygen Concentration - - Weight 75.8 kg (167 lb) 05/21/2018 8:52 AM FLYING TEACHER Height - - Body Mass Index - [...] age to complete this topic Insurance MEDICARE [facility] Care Teams Hotel Administrative Assistant Relationship Specialty Start Date End Date Gokul Sherman MD [address] [facility] [address] [place] [address] Consulting Physician Oncology 05/08/18
--- OUTSIDE RECORDS SUMMARY | 2024-08-12 17:34 | XMS_ITS | Encounter Summary ---
Author Organization [facility] Address [facility] [place] [address] [address] Team Prov[address] Care Road Monkey Name Role Phone Rui Le MD Primary Care Provider + [phone] Gt Gore MD Unavailable [phone] Rui Le MD Primary Care Provider + [phone] Jorge Barnett APRN Unavailable [phone] Tahir Devlin MD Primary Care Provider + [phone] Mohan Rodriguez MD Unavailable [phone] Gurmeet Zhou MD Unavailable Gurmeet Zhou MD Primary Care Provider [phone] Encounter Details Date Type Department Care Team (Late st Contact Info) Description 06/30/2015 Abstract 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 Not on file Not on file Not on file documented as of this encounter Plan of Treatment Not on file documented as of this encounter Visit Diagnoses Not on filedocumented in this encounter Additional Health Concerns Infection Onset Date Last Indicated Resolved Time COVID-19 Rule Out 04/20/2024 04/20/2024 04/20/2024 8:56 AM WALL MAN COVID-19 Rule Out 06/12/2024 06/12/2024 06/12/2024 12:05 PM WALL MAN documented as of this encounter Care Teams Road Monkey Relationship Specialty Start Date End Date Rui Le MD PCP - General FAMILY PRACTICE 06/21/16 06/13/17 Rui Le MD [address] [place] [address] PCP - General FAMILY PRACTICE 06/14/17 11/06/19 Tahir Devlin MD [address] [place] [address] PCP - General FAMILY PRACTICE 11/07/19 07/09/24 Gurmeet Zhou MD [address] [place] [address] PCP - General GASTROENTEROLOGY 07/15/24 Gt Gore MD CARDIOVASCULAR DISEASE 06/14/17 Jorge Barnett APRN [address] [place] [address] [address] Nurse Practitioner NURSE PRACTITIONER 07/17/18 Mohan Rodriguez MD [address] [place] [address] Physician RHEUMATOLOGY 01/27/22 Gurmeet Zhou MD [address] [address] Consulting Physician GASTROENTEROLOGY 01/27/22 documented as of this encounter
--- OUTSIDE RECORDS SUMMARY | 2024-08-12 17:34 | XMS_ITS | Encounter Summary ---
Author Organization [facility] Address [facility] [place] [address] Care Team Providers Care Assembly Press Operator Name Role Phone Rui Le MD Primary Care Provider + [phone] Gt Goer MD Unavailable [phone] Rui Le MD Primary Care Provider + [phone] Jorge Barnett APRN Unavailable [phone] Tahir Devlin MD Primary Care Provider + [phone] Mohan Rodriguez MD Unavailable [phone] Gurmeet Zhou MD Unavailable Gurmeet Zhou MD Primary Care Provider [phone] Encounter Details Date Type Department Care Team (Late st Contact Info) Description 06/10/2016 [facility] [address] [place] [address] Natasha Johnson, RN Social History Tobacco Use Types Packs/Day Years Used Date Smoking Tobacco: Former Alcohol Use Standard Drinks/Week Comments No 0 (1 standard drink = 0.6 oz pur e alcohol) Sex and Gender Information Value Date Recorded Sex Assigned at Male 04/13/2018 10:17 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 Legal Sex Male 10:45 PM CDT Gender Identity Male 04/13/2018 10:17 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 Sexual Orientation Not on file 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 Not on file Not on file documented as of this encounter Plan of Treatment Not on file documented as of this encounter Visit Diagnoses Not on filedocumented in this encounter Additional Health Concerns Infection Onset Date Last Indicated Resolved Time COVID-19 Rule Out 04/20/2024 04/20/2024 04/20/2024 8:56 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 COVID-19 Rule Out 06/12/2024 06/12/2024 06/12/2024 12:05 PM 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 documented as of this encounter Care Teams Assembly Press Operator Relationship Specialty Start Date End Date Rui Le MD PCP - General FAMILY PRACTICE 06/21/16 06/13/17 Rui Le MD [address] [place] [address] PCP - General FAMILY PRACTICE 06/14/17 11/06/19 Tahir Devlin MD [address] [place] [address] PCP - General FAMILY PRACTICE 11/07/19 07/09/24 Gurmeet Zhou MD [address] [place] [address] PCP - General GASTROENTEROLOGY 07/15/24 Gt Gore MD CARDIOVASCULAR DISEASE 06/14/17 Jorge Barnett APRN [address] [facility] [address] [address] Nurse Practitioner NURSE PRACTITIONER 07/17/18 Mohan Rodriguez MD [address] [address] Physician RHEUMATOLOGY 01/27/22 Gurmeet Zhou MD [address] [id number] Consulting Physician GASTROENTEROLOGY 01/27/22 documented as of this encounter
--- OUTSIDE RECORDS SUMMARY | 2024-08-12 17:35 | XMS_ITS | Data Portability ---
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 Plan of Treatment Reminders Order Date Submit Date Provider Last Modified By Organization Details Last Modified Time Details Appointments Establish ed Patient 15.EST 2024 10:15A M Dr. Mohan Rodriguez Not available Not available Not available Infusion 15.PRO 2024 11:30A M Infusion Not available Not available Not available Lab.[place] 2024 11:34A M Lab Not available Not available Not available Infusion 15.PRO 2024 11:00A M Infusion Not available Not available Not available Establish ed Patient 15.EST 2024 10:30A M Dr. Mohan Rodriguez Not available Not available Not available Infusion 15.PRO 2024 10:45A M Infusion Not available Not available Not available Lab None recorded. Referral None recorded. Procedures None recorded. Surgeries None recorded. Imaging None recorded. Medication Orders Cimzia 400 mg/2 mL (200 mg/mL x 2) subcutane ous syringe kit 2024 025 [facility] [id number], [address] [place], [address], 07/15/2024 13:01:10 Cimzia 400 mg/2 mL (200 mg/mL x 2) subcutane ous syringe kit 2024 025 [facility] [id number], [address] [place], [address], 06/12/2024 15:07:23 Cimzia 400 mg/2 mL (200 mg/mL x 2) subcutane ous syringe kit 2023 Bennett kaba [id number], [address], [place], [address], 05/13/2024 20:56:02 Patient TargetsNo targets recorded. Patient InstructionsNo instructions recorded. Reason for Referral None Reported. Results Created Date Observation Date Name Description Value Unit Range Abnormal Flag Note LastModifiedBy Organization Detail LastModifiedTime Result Notes None recorded. Problems Name Problem SNOMED Code Status Onset Date Resolution Date Notes Provider Name and Address Organization Details Recorded Time Central retinal artery occlusion 23417168 Active 2023 Mohan Rodriguez MD [address] [place] [address], [address], [facility] 4 12:13:31 Seronegativ e rheumatoid arthritis 131907072 Active 2023 Mohan Rodriguez MD [address] [place] [address], [address], [facility] 5 11:51:50 Pain of left hip joint 3781181422959 00 Active 2023 Hernandez Shore [facility] 4 09:39:39 Lumbar radiculopat hy 430619456 Active 2023 Mohan Rodriguez MD [address] [place] [address], [address], [facility] 4 12:34:22 Low back pain 501480102 Active 2023 Hernandez Manciaw [facility] 4 09:41:12 Acute sinusitis 89602779 Active 2023 Hernandez Silviano [facility] 4 09:47:52 Anemia 638756868 [facility] 2023 [facility] 4 12:48:41 Swelling of right lower limb 876008801 Active 2024 Mohan Rodriguez MD [address] [facility] [place], [address], [facility] 5 11:52:00 Degenerativ e joint disease involving multiple joints 327022655 Active 2024 Mohan Rodriguez MD [address] [place] [address], [place], [address], [facility] 5 11:52:08 Degeneratio n of lumbar interverteb ral disc 89217898 Active 2023 Mohan Rodriguez MD [address] [facility], [facility], [address], [facility] 4 12:55:09 Seronegativ e rheumatoid arthritis of multiple joints 4821421524221 09 Active 2023 [facility] 4 14:36:13 Renal insufficien cy 346079364 Active 2023 Kathia Szymanski [facility] 4 14:37:38 Ulcerative colitis 23839535 Active 2023 Kathia Szymanski [facility] 4 14:38:43 Osteoarthri tis 769042343 Active 2023 Kathia Szymanski [facility] 4 14:39:30 Polyarthrop athy 03852658 Active 2023 [facility] 4 14:45:41 Undifferent iated inflammator y arthritis 683357637 Active 2023 [facility] 4 14:46:59 Peripheral vascular disease 974149791 Active 2023 [facility] 4 14:47:32 Problem Notes None recorded. Procedures Surgical History Date Name Laterality Status Provider Name and Address Organization Details Recorded Time 5 [place] 800 Infusion Record-Rheum active Malika Correa [facility] 08/12/2024 13:14:31 5 [place] 800 Infusion Record-Rheum completed Vonda Wilde [facility] 07/15/2024 12:51:58 5 [place] 800 Infusion Record-Rheum [facility] 06/12/2024 12:23:07 4 [place] 800 [facility] 14:13:07 4 [place] 800 Infusion Record-Rheum active Malika [facility] 04/15/2024 13:10:15 4 [place] 800 [facility]fusion [facility]um [facility] 03/18/2024 13:31:38 4 [place] 800 [facility]fusion [facility]um [facility] 02/19/2024 12:53:42 4 [place] 800 Infusion Record-Rheum [facility] 01/22/2024 13:08:23 4 [place] 800 Infusion [facility]Rheum [facility] 12/25/2023 12:44:36 4 [place] 800 [facility] 12:38:23 4 [place] 800 [facility]fusion [facility]um [facility] 13:08:42 4 [place] 800 [facility]fusion [facility]um [facility] 15:24:51 Imaging Results None recorded. Procedure Notes None recorded. Medical Equipment None Reported. Allergies Allergen ID Allergen Name Allergen Category Reaction Reaction Severity Criticality Documentation Date Start Date Code Code System Note Provider Name and Address Organization Details Recorded Time 138624 hydroxych loroquine sulfate medicatio n other Not available Not available 07/03/20232016 56516 2 RxNorm React ion: Visua l Distu rbanc e; Comme nt: Deonte madina s: DEA DIAZ 2022 2:28P M CELSO LEHMAN S; ; Not Available Not Available Not Available Medications Name Sig Start Date Stop Date Status Note LastModified by Organization Details LastModified Time atorvastati n 40 mg tablet TAKE 1 TABLET BY MOUTH NIGHTLY AT BEDTIME active Not Available Not Available No t Available prednisone 10 mg tablet TAKE 4 TABS DAILY X 2 DAYS, 3 TABS DAILY X 2 DAYS, 2 TABS DAILY X 2 DAYS, THEN 1 TAB DAILY X 2 DAYS active Not Available Not Available No t Available benzonatate 200 mg capsule TAKE 1 CAPSULE BY MOUTH 3 TIMES A DAY NEEDED FOR COUGH 08/12 completed Not Available Not Available Not Available Claritin 10 mg tablet Take 1 tablet every day by oral route as needed. active Not Available Not Available No t Available diltiazem CD 240 mg capsule,ext ended release 24 hr TAKE 1 CAPSULE BY MOUTH EVERY DAY active Not Available Not Available No t Available valacyclovi r 500 mg tablet TAKE 1 TABLET (500 MG TOTAL) BY MOUTH DAILY. active Not Available Not Available No t Available methotrexat e sodium 25 mg/mL injection solution ONCE WEEKLY TAKE 0.3 mL IN WATER OR JUICE 2023 active Not Available Not Available Not Avai lable diltiazem 120 mg tablet TAKE 1 TABLET BY MOUTH NIGHTLY AT BEDTIME. active Not Available Not Available No t Available benzonatate 100 mg capsule TAKE 1 CAPSULE BY MOUTH THREE TIMES A DAY NEEDED FOR COUGH active Not Available Not Available No t Available aspirin 81 mg chewable tablet CHEW 1 TABLET BY MOUTH DAILY. active Not Available Not Available No t Available folic acid 1 mg tablet TAKE 1 TABLET BY MOUTH EVERY DAY active Not Available Not Available No t Available hydroxychlo roquine 200 mg tablet TAKE 1 TABLET BY MOUTH EVERY DAY 12/24 completed Not Available Not Available Not Available methylpredn isolone 4 mg tablets in a dose pack TAKE 6 TABLETS ON DAY 1 DIRECTED ON PACKAGE AND DECREASE BY 1 TAB EACH DAY FOR A TOTAL OF 6 DAYS active Not Available Not Available No t Available fluticasone propionate 50 mcg/actuati on nasal spray,suspe nsion USE 2 SPRAYS IN EACH NOSTRIL EVERY DAY active Not Available Not Available No t Available ipratropium bromide 21 mcg (0.03 %) nasal spray SPRAY 2 SPRAYS INTO EACH NOSTRIL TWICE A DAY active Not Available Not Available No t Available amoxicillin 875 mg-potjamaaliu m clavulanate 125 mg tablet TAKE 1 TABLET BY MOUTH EVERY 12 HOURS FOR 10 DAYS active Not Available Not Available No t Available nabumetone 500 mg tablet Take 1 tablet twice a day by oral route with meal(s). 2024 active Not Available Not Available Not Avai lable methotrexat e sodium (PF) 25 mg/mL injection solution ONCE WEEKLY TAKE 0.3 ML IN WATER OR JUICE 2023 active Not Available Not Available Not Avai lable tadalafil 5 mg tablet TAKE 1 TABLET (5 MG TOTAL) BY MOUTH DAILY. active Not Available Not Available No t Available Stool Softener DIRECTED active Not Available Not Available No t Available mesalamine 1.2 gram tablet,jeff yed release TAKE 2 TABLETS DAILY WITH BREAKFAST WITH FOOD active Not Available Not Available No t Available budesonide- formoterol HFA 80 mcg-4.5 mcg/actuati on aerosol inhaler INHALE 1-2 PUFFS BY MOUTH EVERY 4 TO 6 HOURS NEEDED FOR SHORTNESS OF BREATH active Not Available Not Available No t Available Cimzia 400 mg/2 mL (200 mg/mL x 2) subcutaneou s syringe kit Inject 2 mL every 4 weeks by subcutane ous route. 2024 active Not Available Not Available Not Avai lable sodium,pota ssium,mag sulfates 17.5 gram-3.13 gram-1.6 gram oral soln TAKE 177ML BY MOUTH EVERY 12 HOURS FOR 1 DAY TAKE DIRECTED IN THE INSTRUCTI ONS 12/21 completed Not Available Not Available Not Available BD Insulin Syringe Ultra-Fine 1 mL 31 gauge x 10/18 USE NEEDED ONCE WEEKLY WITH METHOTREX ATE LIQUID active Not Available Not Available No t Available Vitals Date Recorded Body height Body mass index (BMI) Body weight Heart rate Oxygen saturation Oxygen saturation in Arterial blood by Pulse oximetry Systolic blood pressure Diastolic blood pressure Provider Name and Address Organization Details Last Updated DateTime 5 167.64 cm 26.8 kg/m2 06342.3 3 g 66 /min 91 % 91 % 124 mm[Hg] 80 mm[Hg] Luzma moreau [facility] 5 11:10:58 Social History Question Answer Notes LastModified by Organizat ion Details LastModified Time Tobacco Smoking Status Former Smoker Joyce Ayala [facility] 04/02/2024 12:03:20 How Many Packs Per Day (PPD)? 2 Information not available 04/02/2024 How Long Have You Smoked? 33 YEARS Information not available 04/02/2024 When Did You Quit Smoking? 06/1998 Information not available 04/02/2024 Sex: Unknown Functional Status None recorded. Mental Status None recorded. Family History Nothing Reported. Medical History No medical history recorded. Immunizations Vaccine Type Date Status Note Provider Nam e and Address Organization Details Recorded Time zoster recombinant 9 completed Lina Rodríguez [facility] 09/05/2023 09:15:38 zoster recombinant 9 [facility] Lina Rodríguez [facility] 09/05/2023 09:15:38 Pneumococcal conjugate PCV 13 0 completed Lina Rodríguez [facility] 09/05/2023 09:15:38 Influenza, high-dose, trivalent, PF 9 richard Rodríguez [facility] 09/05/2023 09:15:38 Influenza, split virus, trivalent, preservative 6 completed Lina Rodríguez [facility] 09/05/2023 09:15:38 Past Encounters Encounter ID Performer Location Encounter Start Date Encounter Closed Date Diagnosis/Indication Diagnosis SNOMED-CT Code Diagnosis ICD10 Code Diagnosis Note [id number] Mohan Rodriguez MD 800 [facility] Rheumat[place]gy ([place]) [address] [place] [address], [place] [address] 09/05/2023 08:58:16 09/05/2023 13:52:30 Polyarthropathy 41160554 M13.0 Seronegati ve rheumatoid arthritis 047630996 M06.09 Lumbar radiculopathy 128 312931 M54.16 Osteoarthritis 327301913 M19.90 Ulcerative colitis 66594 004 K51.919 High risk medication monitoring indicated 4367057114 1642833 Z76.89 Z79.631 Pain of le ft hip joint 4215004008 39670 M25.297 [id number] Andrzej Mosquera [facility] ([place]) [address] [place] [address] 09/22/2023 13:13:48 09/22/2023 16:45:50 Polyarthropathy 58057439 M13.0 [id number] Andrzej Garcialeeanne [facility] ([place]) [address] [place] [address] 10/20/2023 12:00:32 10/20/2023 13:09:29 Polyarthropathy 63497096 M13.0 [id number] Andrzej patricia Mosquera [facility] ([place]) [address], [place] [address] 11/16/2023 11:18:44 11/16/2023 13:09:16 Polyarthropathy 63107927 M13.0 [id number] Mohan Rodriguez MD [address] [facility] ([place]) [address] [place] [address] 12/25/2023 11:16:29 12/25/2023 13:50:12 Osteoarthritis 308225475 M19.90 Degenerati on of lumbar intervertebral disc 85561136 M51.36 Rheumatoid arthritis of multiple joints 412407651 M06.89 Long-term drug therapy 826856533 Z79.389 [id number] Mohan Rodriguez MD [address] [facility] ([place]) [address] [place] [address] 12/25/2023 11:16:29 12/25/2023 13:50:12 Polyarthropathy 28546375 M13.0 [id number] Mohan Rodriguez MD [facility] ([place]) [address] [place] [address] 01/22/2024 11:56:04 01/22/2024 13:05:04 Polyarthropathy 89626807 M13.0 [id number] Mohan Rodriguez MD [address] [facility] ([place]) [address] [place] [address] 01/26/2024 10:51:33 01/26/2024 18:17:42 Central retinal artery occlusion 73176515 H34.10 Osteoarthritis 025689759 M19.90 Rheumatoid arthritis of multiple joints 157437447 M05.89 Additional diagnosis detail: Other rheumatoid arthritis with rheumatoid factor of multiple sites [facility] methotrexate user 6281729650 00 Z79.245 [id number] Mohan Rodriguez MD [address] [facility] ([place]) [address] [place] [address],[address] [place] [address] 02/19/2024 11:42:30 02/21/2024 11:13:45 Polyarthropathy 93594351 M13.0 [id number] Mohan Rodriguez MD [address] [facility] ([place]) [address] [place] [address],[address] [place] [address] 03/18/2024 11:43:05 03/18/2024 13:33:47 Polyarthropathy 78034316 M13.0 [id number] Mohan Rodriguez MD [address] [facility] ([place]) [address] [place] [address],[address] [place] [address] 04/02/2024 11:27:00 04/02/2024 18:18:45 Seronegative rheumatoid arthritis 251244887 M06.09 Ulcerative colitis 05636 004 K51.919 Osteoarthritis 695158560 M19.90 Lumbar radiculopathy 128 763611 M54.16 [id number] Mohan Rodriguez MD [address] [facility] ([place] [address] [place] [address] 05/13/2024 10:49:12 05/13/2024 14:13:57 Polyarthropathy 76561923 M13.0 [id number] Mohan Rodriguez MD [address] [facility] ([place] [address], [place] [address] 06/12/2024 09:59:26 06/12/2024 12:25:11 Polyarthropathy 68091889 M13.0 [id number] Mohan Rodriguez MD [address] [facility] ([place]) [address] [facility] [place] [address] 07/15/2024 11:48:03 07/15/2024 12:53:20 Polyarthropathy 28329719 M13.0 [id number] Malika Correa [facility] ([place] [address] [facility] [place] [address] 08/12/2024 12:43:25 08/12/2024 13:18:30 Polyarthropathy 74917275 M13.0 Health Concerns Section Related Observation LastModified by Organization Detai ls LastModified Time None Recorded Concern Status LastModified by Organization Details LastModified Time None Recorded Advance Directives Directive None Recorded Payers Encounter Date Sequence Insurance Name Policy Number Policy Milligan Covered Member ID Milligan Member ID Guarantor Name 05/13/2024 1 [place] Raul Avitia [id number] Raul Avitia 05/13/2024 2 [place] 105 Raul Avitia [id number] Raul Avitia 06/12/2024 1 [place] Raul Avitia [id number] Raul Avitia 06/12/2024 2 [place] 105 Raul Avitia [id number] Raul Avitia 07/15/2024 1 [place] Raul Avitia [id number] Raul Avitia 07/15/2024 2 [place] 105 Raul Avitia [id number] Raul Avitia
--- OUTSIDE RECORDS SUMMARY | 2024-08-12 17:35 | XMS_ITS | Clinical Summary ---
Author Organization [facility] Address [address] [place] [address] Care Team Providers Care Traveling Operator Name Role Phone Maicol Freeman MD Unavailable [phone] Jorge Barnett APRN Unavailable [phone] Mohan Rodriguez MD Unavailable [phone] Gurmeet Zhou MD Unavailable Gurmeet Zhou MD Primary Care Provider [phone] Allergies No known active allergies Medications folic [...] CD (CARDIZEM CD) 240 MG 24 hr capsuleIndications :Benign essential hypertension,PAT (paroxysmal atrial tachycardia) (HHS/HCC),SVT (supraventricular tachycardia) (HHS/HCC) Take 1 capsule (240 mg total) by mouth daily. 90 capsule 1 01/03/20 24 Active dilTIAZem (CARDIZEM) 120 MG tabletIndications: Benign essential hypertension,PAT (paroxysmal atrial tachycardia) (HHS/HCC),SVT (supraventricular tachycardia) (HHS/HCC) Take 1 tablet (120 mg total) by mouth nightly at bedtime. 90 tablet 1 01/03/20 24 Active atorvastatin (LIPITOR) 40 MG tabletIndications: Mixed hyperlipidemia Take 1 tablet (40 mg total) by mouth nightly at bedtime. 90 tablet 1 01/03/20 24 Active loratadine (CLARITIN) 10 MG tabletIndications: Environmental allergies Take 1 tablet (10 mg total) by mouth daily. 90 tablet 1 01/03/20 24 Active fluticasone propionate (FLONASE) 50 MCG/ACT nasal sprayIndications:E nvironmental allergies INHALE 2 SPRAYS IN EACH NOSTRIL EVERY DAY 48 mL 01/03/20 24 Active tadalafil (CIALIS) 5 MG tabletIndications: Benign prostatic hyperplasia with urinary frequency,Erectile dysfunction, unspecified erectile dysfunction type Take 1 tablet (5 mg total) by mouth daily. 90 tablet 1 01/03/20 24 Active valACYclovir (VALTREX) 500 MG tabletIndications: Herpes Take 1 tablet (500 mg total) by mouth daily. 90 tablet 1 01/03/20 24 Active aspirin 81 MG chewable tabletIndications: PAT (paroxysmal atrial tachycardia) (HHS/HCC),SVT (supraventricular tachycardia) (HHS/HCC) Chew 1 tablet (81 mg total) by mouth daily. 90 tablet 1 01/03/20 24 Active dextromethorphan-g uaiFENesin ER (MUCINEX DM) 30-600 MG TABLET SR 12 HR 12 hr tabletIndications: Acute cough,Fluid level behind tympanic membrane of both ears,Acute viral bronchitis Take 1 tablet by mouth every 12 (twelve) hours as needed. 28 tablet 06/12/19 25 Active methylPREDNISolone , MAGDA, (MEDROL DOSEPAK) 4 MG tabletIndications: Acute sore throat,Acute cough,Fluid level behind tympanic membrane of both ears,Acute viral bronchitis Take 1 tablet (4 mg total) by mouth daily. 6 TABLETS ON DAY ONE, 5 TABLETS DAY TWO, 4 TABLETS DAY THREE, 3 TABLETS DAY FOUR, 2 TABLETS DAY FIVE, AND 1 TABLET DAY SIX 1 each 06/12/19 25 Active mesalamine EC (LIALDA) 1.2 g Tab EC tabletIndications: IBD (inflammatory bowel disease) Take 2 tablets (2.4 g total) by mouth daily with breakfast. with food 180 tablet 3 07/03/19 25 026 Active certolizumab pegol (CIMZIA) 2 X 200 MG injectionIndicatio ns:IBD (inflammatory bowel disease) Inject 1 mL (200 mg total) into the skin every 28 days. 1 kit 11 07/03/19 25 Active Active Problems Problem Noted Date Diagnosed Date Overweight (BMI 25.0-29.9) 12/27/2022 Environmental allergies 06/30/2022 Left inguinal hernia 02/17/2022 Stage 2 chronic kidney disease 12/15/2020 Ulcerative colitis (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) 7 Overview (04/13/2018): Date Onset: 12/19/2016 Hypothyroidism 06/15/2015 Overview (04/13/2018): Date Onset: 06/15/2015 BPH (benign prostatic hyperplasia) 06/04/2014 Overview (04/13/2018): Date Onset: 06/04/2014 Erectile dysfunction 04/05/2013 Overview (04/13/2018): Date Onset: 04/05/2013 Date Onset: 06/15/2015 Benign essential hypertension 06/30/2011 Overview (04/13/2018): Date Onset: 12/19/2016 Raynaud's syndrome 06/30/2011 Mixed hyperlipidemia 06/30/2011 PAT (paroxysmal atrial tachycardia) ([facility]/HCC) SVT (supraventricular tachycardia) ([facility]) Resolved Problems Problem Noted Date Diagnosed Date Resolved Date Squamous cell carcinoma in s itu (SCCIS) of skin 05/21/2018 11/07/2019 Prostatism 06/15/2015 11/07/2019 Overview (04/13/2018): Date Onset: 06/15/2015 Hyperlipidemia 11/07/2019 HTN (hypertension) 0 Encounters Date Type Department Care Team Description 07/15/2024 1:53 PM TRIAL MANAGER - 07/15/2024 11:59 PM TRIAL MANAGER Hospital Encounter [facility] [address] [address] Gurmeet Zhou MD Discharge Disposition: Home or Self Care (Routine Discharge) 07/15/2024 Orders Only [facility] [address] [place] [address] Gurmeet Zhou MD 07/15/2024 Orders Only [facility] [address] [address] Gurmeet Zhou MD 07/15/2024 Travel 07/04/2024 Misc Documentation [facility] - [address], [address] [place] [address] Gurmeet Zhou MD Prior Authorization 07/03/2024 2:20 PM TRIAL MANAGER Office Visit [facility] - [address] [place] [address] Gurmeet Zhou MD Follow Up (Yearly follow up) 07/03/2024 Travel 06/17/[address] [place] [address] Tahir Devlin MD Follow Up Call 06/12/2024 12:00 PM TRIAL MANAGER Office Visit [address] [place] [address] Adri Reis, BUSINESS CONSULTANTTahir Starr MD Cough (Pt states all his sx have come and gone since ); Runny Nose; Congestion (head); Sore Throat (Pt states it comes and goes with the cough. ) 06/12/2024 Travel 05/27/2024 1:48 PM TRIAL MANAGER - 05/27/2024 11:59 PM TRIAL MANAGER Hospital Encounter [facility] [address] [place] [address] Mohan Rodriguez MD Discharge Disposition: Home or Self Care (Routine Discharge) 05/27/2024 Orders Only [facility] [address] [place] [address] Mohan Rodriguez MD 05/27/2024 Travel from Last 3 Months Immunizations Name Administration Dates Next Due Influenza (Generic) 02/26/2018,04/26/2016,2014 Influenza Adult (Generic) 05/15/2019,04/26/2016 Pneumococcal (Pneumovax 23) 02/26/2018 Pneumococcal (Prevnar 13) 11/07/2019 Shingrix 11/21/2018 Zoster (Zostavax) 21777 Unt/0.65Ml 04/05/2013 Zoster Unspecified Formulation 08/06/2018 Family [...] Sex Assigned at Male 04/13/2018 10:17 AM TRIAL MANAGER Legal Sex Male 10:45 PM CDT Gender Identity Male 04/13/2018 10:17 AM TRIAL MANAGER Sexual Orientation Not on file 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 Not on file Not on file Not on file Not on file Not on file Not on file Not on file Last Filed Vital Signs Vital Sign Reading Time Taken Comments Blood Pressure 138/71 07/03/2024 2:28 PM TRIAL MANAGER Pulse 72 07/03/2024 2:28 PM TRIAL MANAGER Temperature 37.7 C (99.8 F) 07/03/2024 2:28 PM TRIAL MANAGER Respiratory Rate 12 06/12/2024 11:30 AM TRIAL MANAGER Oxygen Saturation 98% 07/03/2024 2:28 PM TRIAL MANAGER Inhaled Oxygen Concentration - - Weight 77.1 kg (170 lb) 07/03/2024 2:28 PM TRIAL MANAGER Height 167.6 cm (5' 6 ) 07/03/2024 2:28 PM TRIAL MANAGER Body Mass Index 27.44 07/03/2024 2:28 PM TRIAL MANAGER Plan of Treatment Health Maintenance Due Date [...] 65+ Years Completed 11/07/2019, 02/26/2018 PHQ-2 (Physician [place]) Completed 07/03/2024 Meningococcal B Vaccine Aged Out No l onger eligible based on patient's age to complete this topic Meningococcal Vaccine Aged Out No enrique momo eligible based on patient's age to complete this topic RSV Immunizations Under 20 Months Aged Out No longer eligible based on patient's age to complete this topic Medical Devices Implanted Type Area Senior User Experience Architect Device Identifier Shelf Expiration Date Model / Serial / Lot Clip Resolution 360 Deg 2.8mm X 235cm - [id number] Implanted:Qty : 2 on 03/14/2023 by Gurmeet Zhou MD at [facility] Clip Implant [employer] 02/14/2025 [id number] / / [id number] Plug Large Mesh Perfix 1.6 X 1.90 - [id number] Implanted:Qty : 1 on 03/28/2022 by Bonilla Gupta MD at [facility] Mesh [employer] [id number] 06/01/2025 [id number] / / [id number] Mesh Bard Plug Xlarge [id number] - [id number] Implanted:Qty : 1 on 03/28/2022 by Bonilla Gupta MD at [facility] Mesh Left: Groin [employer] [id number] 01/30/2026 [id number] / / [id number] Procedures Procedure Name Priority Date/Time Associated Diagnosis Comments TBGOLD-TUBERCULOSIS TST CELL MEDIATED IMMUNITY Routine 07/15/2024 2:00 PM TRIAL MANAGER IBD (inflammatory bowel disease) CORONAVIRUS (COVID-19) INFLUENZA A & B ANTIGEN IA PANEL Routine 06/12/2024 Acute sore throat Acute cough STREP A RAPID Routine 06/12/2024 Acute sore throat RETICULOCYTE CT, AUTO STAT 05/27/2024 1:57 PM TRIAL MANAGER Nutritional anemia CBC W/DIFF AUTOMATED STAT 05/27/2024 1:57 PM TRIAL MANAGER Nutritional anemia VITAMIN B12 / FOLATE STAT 05/27/2024 1:57 PM TRIAL MANAGER Nutritional anemia IRON SAT PANEL (IRON,IBC,%SAT) STAT 05/27/2024 1:57 PM TRIAL MANAGER Nutritional anemia FERRITIN STAT 05/27/2024 1:57 PM TRIAL MANAGER Nutritional anemia COLONOSCOPY GENERIC (SCAN ORDER) Routine 01/22/2019 US AORTA SCREEN 06/21/2016 8:49 AM TRIAL MANAGER from Last 3 Months or Most Recently Relevant to Health Maintenance Results * TBGOLD-TUBERCULOSIS TST CELL MEDIATED IMMUNITY (07/15/2024 2:00 PM TRIAL MANAGER) TB1 AG MINUS NIL 0.00 IU/ML 07/17/19 3:18 PM TRIAL MANAGER [facility] TB2 AG MINUS NIL 0.00 IU/ML 07/17/19 25 3:18 PM TRIAL MANAGER [facility] TB QUANTIFERON NEGATIVE NEGATIVE 07/17/2024 3:18 PM TRIAL MANAGER [facility] TB INTERPRETATION M. tuberculosis infection unlikely but cannot be excluded especially when any illness is consistent with TB disease and/or likelihood of progression to disease is increased. In patients at high risk to M. tuberculosis infection, a second test should be considered. 07/17/2024 3:18 PM TRIAL MANAGER [facility] 07/15/2024 2:00 PM TRIAL MANAGER us Gurmeet Zhou MD LABORATORY Final Result [facility] [address] [place] [address], [place] [phone] [id number] * CORONAVIRUS (COVID-19) INFLUENZA A & B ANTIGEN IA PANEL (06/12/2024) CORONAVIRUS ANTIGEN IA NEGATIVE NEGATIVE [facility] (201), [place] INFLUENZA A NEGATIVE NEGATIVE [facility] (201), [place] INFLUENZA B NEGATIVE NEGATIVE [facility] (201), [place] Internal Control: VALID VALID [facility] (201), [place] NASAL STRUCTURE / Unknown 06/12/2024 us Tahir Devlin MD MICROBIOLOGY - GENERAL ORDER FARHAT Final Result [facility] ([address]), [address] [address], [place] [phone] * STREP A RAPID (06/12/2024) RAPID STREP TEST NEGATIVE NEGATIVE [facility] (201), [place] Internal Control: VALID VALID [facility] (201), [place] STRUCTURE OF ANTERIOR PORTION OF NECK / Unknown 06/12/2024 us Tahir Devlin MD MICROBIOLOGY - GENERAL ORDER FARHAT Final Result [facility] [address] ([address]), [address] [address], * (ABNORMAL) VITAMIN B12 / FOLATE (05/27/2024 1:57 PM TRIAL MANAGER) VITAMIN B12 S/P/B 933 254 - 1,320 PG/ML 05/27/2024 8:[address] [facility] FOLATE 37.1(H) 3.1 - 17.5 NG/ML 05/27/2024 8:[address] [facility] 05/27/2024 1:57 PM TRIAL MANAGER us Mohan Rodriguez MD LABORATORY Final Resul t Performing Organization Address [facility] Co de Phone Number [facility] [address] [place] [address], [place] [phone] * IRON SAT PANEL (IRON,IBC,%SAT) (05/27/2024 1:57 PM TRIAL MANAGER) IRON 86 65.0 - 175.0 MCG/DL 05/27/2024 7:[address] [facility] IRON BINDING CAPACITY 339 250 - 450 MCG/DL 05/27/2024 7:[address] [facility] IRON SATURATION 25 20 - 55 % 7:[address] [facility] 05/27/2024 1:57 PM TRIAL MANAGER us Mohan Rodriguez MD LABORATORY Final Resul t [facility] [address] [place] [address], [place] [phone] * RETICULOCYTE CT, AUTO (05/27/2024 1:57 PM TRIAL MANAGER) Pathologist [facility] RETICULOCYTE COUNT 0.9 0.4 - 3.8 % 05/27/2024 2:25 PM TRIAL MANAGER [facility] ABSOLUTE RETICULOCYTE 0.03 0.02 - 0.13 x10'6/uL 05/27/2024 2:25 PM TRIAL MANAGER [facility] IMMATURE RETIC FRACTION 4.2 2.3 - 13.4 % 05/27/2024 2:25 PM TRIAL MANAGER [facility] RETIC HGB 35.0 28.2 - 36.6 PG 05/27/2024 2:25 PM TRIAL MANAGER [facility] 05/27/2024 1:57 PM TRIAL MANAGER us Mohan Rodriguez MD LABORATORY Final Resul t [facility] [address] [facility] [address] [address] [place] [address], * (ABNORMAL) CBC W/DIFF AUTOMATED (05/27/2024 1:57 PM TRIAL MANAGER) Pathologist [facility] WBC 6.85 4.50 - 11.00 x10'3/uL 05/27/2024 2:25 PM TRIAL MANAGER [facility] RBC 3.72(L) 4.50 - 5.90 x10'6/uL 05/27/2024 2:25 PM TRIAL MANAGER [facility] HGB 11.9(L) 14.0 - 18.0 G/DL 05/27/2024 2:25 PM TRIAL MANAGER [facility] HCT 37.4(L) 43.0 - 54.0 % 05/27/2024 2:25 PM TRIAL MANAGER [facility] MCV 100.5(H) 80.0 - 100.0 FL 05/27/2024 2:25 PM TRIAL MANAGER [facility] MCH 32.0 26.0 - 34.0 PG 05/27/2024 2:25 PM TRIAL MANAGER [facility] MCHC 31.8 31.0 - 37.0 G/DL 05/27/2024 2:25 PM [facility] RDW 13.2 11.6 - 14.8 % 05/27/2024 2:25 PM [facility] PLT 241 130 - 400 x10'3/uL 05/27/2024 2:25 PM [facility] MPV 9.5 7.0 - 12.0 FL 05/27/2024 2:25 PM [facility] CBC COMMENT AUTOMATED RBC MORPHOLOGY AND PLATELET EVALUATION NORMAL 05/27/2024 2:25 PM [facility] NEUTROPHILS % 52.4 40.0 - 74.0 % 05/27/2024 2:25 PM [facility] LYMPHOCYTES % 34.5 14.0 - 46.0 % 05/27/2024 2:25 PM [facility] MONOCYTES % 10.1 4.0 - 13.0 % 05/27/2024 2:25 PM [facility] EOSINOPHILS 2.5 0.0 - 7.0 % 05/27/2024 2:25 PM [facility] BASOPHILS 0.4 0.0 - 3.0 % 05/27/2024 2:25 PM [facility] IMMATURE GRANS % 0.1 0.0 - 0.43 % 05/27/2024 2:25 PM [facility] NRBC % 0.0 % 05/27/2024 2:25 PM [facility] ABS. NEUTROPHILS TOTAL 3.59 1.69 - 7.81 x10'3/uL 05/27/2024 2:25 PM [facility] ABS. LYMPHOCYTES 2.36 0.21 - 5.42 x10'3/uL 05/27/2024 2:25 PM [facility] ABS. MONOCYTES 0.69 0.04 - 1.37 x10'3/uL 05/27/2024 2:25 PM TRIAL MANAGER [facility] ABS. EOSINOPHILS 0.17 0.00 - 0.68 x10'3/uL 05/27/2024 2:25 PM TRIAL MANAGER [facility] ABS. BASOPHILS 0.03 0.00 - 0.08 x10'3/uL 05/27/2024 2:25 PM TRIAL MANAGER [facility] ABS. IMMATURE GRANULOCYTES 0.01 0.00 - 0.06 x10'3/uL 05/27/2024 2:25 PM TRIAL MANAGER [facility] ABS. NUCLEATED RBC'S 0.00 0.00 - 0.01 x10'3/uL 05/27/2024 2:25 PM TRIAL MANAGER [facility] 05/27/2024 1:57 PM TRIAL MANAGER us Mohan Rodriguez MD LABORATORY Final Resul t Performing Organization Address City/[facility]/ZIP Co de Phone Number [facility] [address] [place] [address], [place] * FERRITIN (05/27/2024 1:57 PM TRIAL MANAGER) FERRITIN 46.0 8.0 - 388.0 NG/ML 05/27/2024 7:[address] [facility] 05/27/2024 1:57 PM TRIAL MANAGER us Mohan Rodriguez MD LABORATORY Final Resul t Performing Organization Address City/[facility]/ZIP Co de Phone Number [facility] [address] [place] [address], [place] [phone] * COLONOSCOPY (01/22/2019) us Documents Scanned SCANNING Edited Result - Final * US AORTA MEDICARE SCREEN (06/21/2016 8:49 AM TRIAL MANAGER) Anatomical Region Laterality Modality Abdomen Ultrasound 06/21/2016 8:49 AM TRIAL MANAGER Narrative 06/21/2016 12:00 AM TRIAL MANAGER Aorta Limited Vascular Report Pat.Name: HANANE AVITIA Pat.ID: [id number] .Date: 06/21/2016 Refer.MD: MAICOL FREEMAN Exam Time: 8:49:00 AM Study Type:DUPLEX SCAN AORTA LIMITED Age: 1 1950,66Y Sex: MALE Sonogrphr: Rajendra Chacon RVT Pat. Stat.:Outpatient ICD - 9: I71.4 AAA without Rupture CPT - 4: 54268 Reason for Study:AAA Screening Race: C ++++++++++++++++++++++++++++++++++++ [...] Limited Vascular Report Pat.Name: HANANE AVITIA Pat.ID: [id number] St.Date: 06/21/2016 Refer.MD: MAICOL FREEMAN Exam Time: 8:49:00 AM Study Type:DUPLEX SCAN AORTA LIMITED Age: 1 1950,66Y Sex: MALE Sonogrphr: Rajendra Chacon RVT Pat. Stat.:Outpatient ICD - 9: I71.4 AAA without Rupture CPT - 4: 05079 Reason for Study:AAA Screening Race: C ++++++++++++++++++++++++++++++++++++ [...] Signed 06/21/2016 07:57 PM Heber Burns M.D. Maiocl Freeman MD ULTRASOUND Final Res ult from Last 3 Months or Most Recently Relevant to Health Maintenance [place] [place] [address] MEDICARE Advance Directives Documents on File Type Date Recorded Patient Profiler Operator Expl anation Advance Directives and Living Will [...] 09/03/2013 12:00 AM ADVANCED DIRECTIVES Care Teams Traveling Operator Relationship Specialty Start Date End Date Gurmeet Zhou MD [address] [place] [address] PCP - General GASTROENTEROLOGY 07/15/24 Maicol Freeman MD CARDIOVASCULAR DISEASE 06/14/17 Jorge Barnett APRN [address] [facility] [address] [place] [address] Nurse Practitioner NURSE PRACTITIONER 07/17/18 Mohan Rodriguez MD [address] [place] [address] Physician RHEUMATOLOGY 01/27/22 Gurmeet Zhou MD [address] [place] [address] Consulting Physician GASTROENTEROLOGY 01/27/22
== END 2024-08-12 14:55 | disposition home or self-care (01) ==
PROVIDERS: PCP Family Medicine; Visit Provider Internal Medicine Rheumatology
DX: M79.89 Other specified soft tissue disorders (principal)
CPT/HCPCS: 93971

== ENCOUNTER 2024-09-03 10:10 | Outpatient (CLI) | payer MEDICARE, BC, SELFPAY ==
--- NOTE | 2024-09-03 10:30 | ECG_ITS ---
Test Date: 2024-09-03 10:36:29 Measurements Intervals [place] Rate: 60 P: 63 SD: 197 QRS: -7 QRSD: 98 T: 30 QT: 392 QTc: 394 Interpretive Statements SINUS RHYTHM WITH SINUS ARRHYTHMIA POSSIBLE LEFT ATRIAL ENLARGEMENT BORDERLINE R WAVE PROGRESSION, ANTERIOR LEADS INFERIOR INFARCT, AGE INDETERMINATE BASELINE ARTIFACT- I, II, III, AVR, AVL ,AVF, V4-V6 ABNORMAL ECG No previous ECG available for comparison Electronically Signed On 09-03-2024 12:25:14 CDT by Anselmo Hager D.O.
--- OUTSIDE RECORDS SUMMARY | 2024-09-03 11:06 | XMS_ITS | Encounter Summary ---
Author Organization [facility] Address [facility] [place] [address] Care Team Providers Care Head Correction Officer Name Role Phone Rui Le MD Primary Care Provider + [phone] Gt Gore MD Unavailable [phone] Rui Le MD Primary Care Provider + [phone] Jorge Barnett APRN Unavailable [phone] Tahir Devlin MD Primary Care Provider + [phone] Mohan Rodriguez MD Unavailable [phone] Gurmeet Zhou MD Unavailable Gurmeet Zhou MD Primary Care Provider [phone] Encounter Details Date Type Department Care Team (Late st Contact Info) Description 06/10/2016 [facility] [address] [place] [address] Natasha Johnson, RN Social History Tobacco Use Types Packs/Day Years Used Date Smoking Tobacco: Former Alcohol Use Standard Drinks/Week Comments No 0 (1 standard drink = 0.6 oz pur e alcohol) Sex and Gender Information Value Date Recorded Sex Assigned at Male 04/13/2018 10:17 AM GASOLINE SERVICE ATTENDANT Legal Sex Male 10:45 PM CDT Gender Identity Male 04/13/2018 10:17 AM GASOLINE SERVICE ATTENDANT Sexual Orientation Not on file 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 Not on file Not on file documented as of this encounter Plan of Treatment Not on file documented as of this encounter Visit Diagnoses Not on filedocumented in this encounter Additional Health Concerns Infection Onset Date Last Indicated Resolved Time COVID-19 Rule Out 04/20/2024 04/20/2024 04/20/2024 8:56 AM GASOLINE SERVICE ATTENDANT COVID-19 Rule Out 06/12/2024 06/12/2024 06/12/2024 12:05 PM GASOLINE SERVICE ATTENDANT documented as of this encounter Care Teams Head Correction Officer Relationship Specialty Start Date End Date Rui Le MD PCP - General FAMILY PRACTICE 06/21/16 06/13/17 Rui Le MD [address] [place] [address] PCP - General FAMILY PRACTICE 06/14/17 11/06/19 Tahir Devlin MD [address] [place] [address] PCP - General FAMILY PRACTICE 11/07/19 07/09/24 Gurmeet Zhou MD [address] [place] [address] PCP - General GASTROENTEROLOGY 07/15/24 Gt Gore MD CARDIOVASCULAR DISEASE 06/14/17 Jorge Barnett APRN [address] [place] [address] Nurse Practitioner NURSE PRACTITIONER 07/17/18 Mohan Rodriguez MD [address] [place] [address] Physician RHEUMATOLOGY 01/27/22 Gurmeet Zhou MD [address] [address] Consulting Physician GASTROENTEROLOGY 01/27/22 documented as of this encounter
--- OUTSIDE RECORDS SUMMARY | 2024-09-03 11:06 | XMS_ITS | Encounter Summary ---
Author Organization [facility] Address [facility] [place] [address] Care Team Providers Care Clinical Documentation Specialist Name Role Phone Rui Le MD Primary Care Provider + [phone] Gt Groe MD Unavailable [phone] Rui Le MD Primary Care Provider + [phone] Jorge Barnett APRN Unavailable [phone] Tahir Devlin MD Primary Care Provider + [phone] Mohan Rodriguez MD Unavailable [phone] Gurmeet Zhou MD Unavailable Gurmeet Zhou MD Primary Care Provider [phone] Encounter Details Date Type Department Care Team (Late st Contact Info) Description 06/30/2015 Abstract [facility] [address] [place] [address] Gt Gore MD [address] [facility], [address] [place] [address] Social History Tobacco Use Types Packs/Day Years Used Date Smoking Tobacco: Former Alcohol Use Standard Drinks/Week Comments No 0 (1 standard drink = 0.6 oz pur e alcohol) Sex and Gender Information Value Date Recorded Sex Assigned at Male 04/13/2018 10:17 AM MERCHANDISE EXAMINER Legal Sex Male 10:45 PM CDT Gender Identity Male 04/13/2018 10:17 AM MERCHANDISE EXAMINER Sexual Orientation Not on file 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 Not on file Not on file Not on file documented as of this encounter Plan of Treatment Not on file documented as of this encounter Visit Diagnoses Not on filedocumented in this encounter Additional Health Concerns Infection Onset Date Last Indicated Resolved Time COVID-19 Rule Out 04/20/2024 04/20/2024 04/20/2024 8:56 AM MERCHANDISE EXAMINER COVID-19 Rule Out 06/12/2024 06/12/2024 06/12/2024 12:05 PM MERCHANDISE EXAMINER documented as of this encounter Care Teams Clinical Documentation Specialist Relationship Specialty Start Date End Date Rui Le MD PCP - General FAMILY PRACTICE 06/21/16 06/13/17 Rui Le MD [address] [place] [address] PCP - General FAMILY PRACTICE 06/14/17 11/06/19 Tahir Devlin MD [address] [place] [address] PCP - General FAMILY PRACTICE 11/07/19 07/09/24 Gurmeet Zhou MD [address] [place] [address] PCP - General GASTROENTEROLOGY 07/15/24 Gt Gore MD CARDIOVASCULAR DISEASE 06/14/17 Jorge Barnett APRN [address] [place] [address] Nurse Practitioner NURSE PRACTITIONER 07/17/18 Mohan Rodriguez MD [address] [place] [address] Physician RHEUMATOLOGY 01/27/22 Gurmeet Zhou MD [address] [address] Consulting Physician GASTROENTEROLOGY 01/27/22 documented as of this encounter
--- OUTSIDE RECORDS SUMMARY | 2024-09-03 11:06 | XMS_ITS | Clinical Summary ---
Author Organization [facility] Address [address], [address] [place] [address] Phone Care Team Providers Care Cell Cleaner Name Role Phone Gokul Sherman MD Unavailable [phone] Allergies No known active allergies Medications valACYclovir [...] on file Legal Sex Male 1:49 PM MARINE PIPEFITTER Gender Identity Not on file Sexual Orientation Not on file Last Filed Vital Signs Vital Sign Reading Time Taken Comments Blood Pressure 124/70 05/21/2018 8:52 AM MARINE PIPEFITTER Pulse 64 05/21/2018 8:52 AM MARINE PIPEFITTER Temperature 37 C (98.6 F) 05/21/2018 8:52 AM MARINE PIPEFITTER Respiratory Rate - - Oxygen Saturation 96% 05/21/2018 8:52 AM MARINE PIPEFITTER Inhaled Oxygen Concentration - - Weight 75.8 kg (167 lb) 05/21/2018 8:52 AM MARINE PIPEFITTER Height - - Body Mass Index - [...] 1-dose series) 2011 Influenza Immunization (#1) 2024 04/26/2016 Hepatitis B Immunization Aged Out No longer eligible based on patient's age to complete this topic Meningococcal Immunization (ACWY) Aged Out No longer eligible based on patient's age to complete this topic Rotavirus Immunization Aged Out No lo nger eligible based on patient's age to complete this topic Insurance MEDICARE [facility] Care Teams Cell Cleaner Relationship Specialty Start Date End Date Gokul Sherman MD [address] [address] Consulting Physician Oncology 05/08/18
--- OUTSIDE RECORDS SUMMARY | 2024-09-03 11:06 | XMS_ITS | Clinical Summary ---
Author Organization [facility] Address [address] [place] [address] Care Team Providers Care Inspector Boiler Name Role Phone Maicol Freeman MD Unavailable [phone] Jorge Barnett APRN Unavailable [phone] Mohan Rodriguez MD Unavailable [phone] Gurmeet Zhou MD Unavailable Gurmeet Zhou MD Primary Care Provider [phone] Allergies No known active allergies Medications folic [...] 2 chronic kidney disease 12/15/2020 Ulcerative colitis ([facility]) 11/07/2019 Herpes 05/23/2019 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 History of umbilical hernia 04/13/2018 Rheumatoid arthritis ([facility]) 7 Overview (04/13/2018): Date Onset: 12/19/2016 Hypothyroidism 06/15/2015 Overview (04/13/2018): Date Onset: 06/15/2015 BPH (benign prostatic hyperplasia) 06/04/2014 Overview (04/13/2018): Date Onset: 06/04/2014 Erectile dysfunction 04/05/2013 Overview (04/13/2018): Date Onset: 04/05/2013 Date Onset: 06/15/2015 Benign essential hypertension 06/30/2011 Overview (04/13/2018): Date Onset: 12/19/2016 Raynaud's syndrome 06/30/2011 Mixed hyperlipidemia 06/30/2011 PAT (paroxysmal atrial tachycardia) ([facility]) SVT (supraventricular tachycardia) ([facility]) Resolved Problems Problem Noted Date Diagnosed Date Resolved Date Squamous cell carcinoma in s itu (SCCIS) of skin 05/21/2018 11/07/2019 Prostatism 06/15/2015 11/07/2019 Overview (04/13/2018): Date Onset: 06/15/2015 Hyperlipidemia 11/07/2019 HTN (hypertension) 0 Encounters Date Type Department Care Team Description 07/15/2024 1:53 PM FINAL FINISHER FORGING DIES - 07/15/2024 11:59 PM FINAL FINISHER FORGING DIES Hospital Encounter [facility] [address] [address] Gurmeet Zhou MD Discharge Disposition: Home or Self Care (Routine Discharge) 07/15/2024 Orders Only [facility] [address] [address] Gurmeet Zhou MD 07/15/2024 Orders Only [facility] [address] [address] Gurmeet Zhou MD 07/15/2024 Travel 07/04/2024 Misc Documentation [facility] - [address], [address] [place] [address] Gurmeet Zhou MD Prior Authorization 07/03/2024 2:20 PM FINAL FINISHER FORGING DIES Office Visit [facility] - [address] [place] [address] Gurmeet Zhou MD Follow Up (Yearly follow up) 07/03/2024 Travel 06/17/[address] [place] [address] Tahir Devlin MD Follow Up Call 06/12/2024 12:00 PM FINAL FINISHER FORGING DIES Office Visit [address] [place] [address] Adri Reis, CORRECTIONAL SUPPLY SUPERVISORTahir Starr MD Cough (Pt states all his sx have come and gone since ); Runny Nose; Congestion (head); Sore Throat (Pt states it comes and goes with the cough. 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 on file Not on file Not on file Not on file Not on file Not on file Not on file Last Filed Vital Signs Vital Sign Reading Time Taken Comments Blood Pressure 138/71 07/03/2024 2:28 PM FINAL FINISHER FORGING DIES Pulse 72 07/03/2024 2:28 PM FINAL FINISHER FORGING DIES Temperature 37.7 C (99.8 F) 07/03/2024 2:28 PM FINAL FINISHER FORGING DIES Respiratory Rate 12 06/12/2024 11:30 AM FINAL FINISHER FORGING DIES Oxygen Saturation 98% 07/03/2024 2:28 PM FINAL FINISHER FORGING DIES Inhaled Oxygen Concentration - - Weight 77.1 kg (170 lb) 07/03/2024 2:28 PM FINAL FINISHER FORGING DIES Height 167.6 cm (5' 6 ) 07/03/2024 2:28 PM FINAL FINISHER FORGING DIES Body Mass Index 27.44 07/03/2024 2:28 PM FINAL FINISHER FORGING DIES Plan of Treatment Health Maintenance Due Date [...] 65+ Years Completed 11/07/2019, 02/26/2018 PHQ-2 (Physician Purdy) Completed 07/03/2024 Meningococcal B Vaccine Aged Out No l onger eligible based on patient's age to complete this topic Meningococcal Vaccine Aged Out No enrique momo eligible based on patient's age to complete this topic RSV Immunizations Under 20 Months Aged Out No longer eligible based on patient's age to complete this topic Medical Devices Implanted Type Area Thaw Shed Heater Tender Device Identifier Shelf Expiration Date Model / Serial / Lot Clip Resolution 360 Deg 2.8mm X 235cm - [id number] Implanted:Qty : 2 on 03/14/2023 by Gurmeet Zhou MD at [facility] Clip Implant MED[employer]K RIGO 02/14/2025 [id number] / / [id number] Plug Large Mesh Perfix 1.6 X 1.90 - [id number] Implanted:Qty : 1 on 03/28/2022 by Bonilla Gupta MD at [facility] Mesh [employer] - DIV [employer] [id number] 06/01/2025 [id number] / / [id number] Mesh Bard Plug Xlarge [id number] - [id number] Implanted:Qty : 1 on 03/28/2022 by Bonilla Gupta MD at [facility] Mesh Left: Groin [employer] - [employer] [id number] 01/30/2026 [id number] / / [id number] Procedures Procedure Name Priority Date/Time Associated Diagnosis Comments TBGOLD-TUBERCULOSIS TST CELL MEDIATED IMMUNITY Routine 07/15/2024 2:00 PM FINAL FINISHER FORGING DIES IBD (inflammatory bowel disease) CORONAVIRUS (COVID-19) INFLUENZA A & B ANTIGEN IA PANEL Routine 06/12/2024 Acute sore throat Acute cough STREP A RAPID Routine 06/12/2024 Acute sore throat COLONOSCOPY GENERIC (SCAN ORDER) Routine 01/22/2019 US AORTA SCREEN 06/21/2016 8:49 AM FINAL FINISHER FORGING DIES from Last 3 Months or Most Recently Relevant to Health Maintenance Results * TBGOLD-TUBERCULOSIS TST CELL MEDIATED IMMUNITY (07/15/2024 2:00 PM FINAL FINISHER FORGING DIES) TB1 AG MINUS NIL 0.00 IU/ML 07/17/19 3:18 PM FINAL FINISHER FORGING DIES [facility] TB2 AG MINUS NIL 0.00 IU/ML 07/17/19 3:18 PM FINAL FINISHER FORGING DIES [facility] TB QUANTIFERON NEGATIVE NEGATIVE 07/17/2024 3:18 PM FINAL FINISHER FORGING DIES [facility] TB INTERPRETATION M. tuberculosis infection unlikely but cannot be excluded especially when any illness is consistent with TB disease and/or likelihood of progression to disease is increased. In patients at high risk to M. tuberculosis infection, a second test should be considered. 07/17/2024 3:18 PM FINAL FINISHER FORGING DIES [facility] 07/15/2024 2:00 PM FINAL FINISHER FORGING DIES us Gurmeet Zhou MD LABORATORY Final Result [facility] [address] [place] [address], [id number] * CORONAVIRUS (COVID-19) INFLUENZA A & B ANTIGEN IA PANEL (06/12/2024) Pathologist [facility] CORONAVIRUS ANTIGEN IA NEGATIVE NEGATIVE -[facility] ([address]), [place] INFLUENZA A NEGATIVE NEGATIVE -[facility] [place] ([address]), [place] INFLUENZA B NEGATIVE NEGATIVE [facility] ([address]), [place] Internal Control: VALID VALID [facility] ([address]), [place] NASAL STRUCTURE / Unknown 06/12/2024 Tahir Devlin MD MICROBIOLOGY - GENERAL ORDER FAR[place]AT Final Result Performing Organization Address City/[facility]/ZIP Co de Phone Number [facility] ([address]), [place] [address], * STREP A RAPID (06/12/2024) [facility] RAPID STREP TEST NEGATIVE NEGATIVE [facility] ([address]), [place] Internal Control: [facility]ID VALID [facility] ([address]), [place] STRUCTURE OF ANTERIOR PORTION OF NECK / Unknown 06/12/2024 Tahir Devlin MD MICROBIOLOGY - GENERAL ORDER [place] Final Result Performing Organization Address [facility] Co de Phone Number [facility] ([address]), [address] [address], [place] [phone] * COLONOSCOPY (01/22/2019) us Documents Scanned SCANNING Edited Result - Final * US AORTA MEDICARE SCREEN (06/21/2016 8:49 AM FINAL FINISHER FORGING DIES) Anatomical Region Laterality Modality Abdomen Ultrasound 06/21/2016 8:49 AM FINAL FINISHER FORGING DIES Narrative 06/21/2016 12:00 AM FINAL FINISHER FORGING DIES Aorta Limited Vascular Report Pat.Name: HANANE AVITIA.ID: [id number] St.Date: 06/21/2016 Refer.MD: MAICOL FREEMAN Exam Time: 8:49:00 AM Study Type:DUPLEX SCAN AORTA LIMITED Age: 1 1950,66Y Sex: MALE Sonogrphr: Rajendra Chacon RVT Pat. Stat.:Outpatient ICD - 9: I71.4 AAA without Rupture CPT - 4: 21340 Reason for Study:AAA Screening Race: C ++++++++++++++++++++++++++++++++++++ [...] Limited Vascular Report Pat.Name: HANANE AVITIA Pat.ID: [id number] .Date: 06/21/2016 Refer.MD: MAICOL FREEMAN Exam Time: 8:49:00 AM Study Type:DUPLEX SCAN AORTA LIMITED Age: 1 1950,66Y Sex: MALE Sonogrphr: Rajendra BRAVO Chacon Pat. Stat.:Outpatient ICD - 9: I71.4 AAA without Rupture CPT - 4: 90940 Reason for Study:AAA Screening Race: C ++++++++++++++++++++++++++++++++++++ [...] Signed 06/21/2016 07:57 PM Heber Burns M.D. us Maicol Freeman MD ULTRASOUND Final Res ult from Last 3 Months or Most Recently Relevant to Health Maintenance Insurance [facility] MEDICARE Advance Directives Documents on File Type Date Recorded Patient Motor Assembler Expl anation Advance Directives and Living Will [...] 09/03/2013 12:00 AM ADVANCED DIRECTIVES Care Teams Inspector Boiler Relationship Specialty Start Date End Date Gurmeet Zhou MD [address] [place] [address] [place] [address] PCP - General GASTROENTEROLOGY 07/15/24 Maicol Freeman MD CARDIOVASCULAR DISEASE 06/14/17 Jorge Barnett APRN Nurse Practitioner NURSE PRACTITIONER 07/17/18 Mohan Rodriguez MD [address] [place] [address] Physician RHEUMATOLOGY 01/27/22 Gurmeet Zhou MD [address] [place] [address] Consulting Physician GASTROENTEROLOGY 01/27/22
--- OUTSIDE RECORDS SUMMARY | 2024-09-03 11:06 | XMS_ITS | Continuity of Care Document ---
Author Organization [facility] Address [address] [place] [address] Phone Care Team Providers Care Home Paraprofessional Name Role Phone Magdalena Hernandes OD Unavailable Unavailable Allergies, Adverse Reactions, Alerts Substance Reaction Status Criticality No Known Allergies Active No Inform ation Medications Medication Instructions Dosage Effective Dates (start - stop) Status Comments methotrexate sodium 2.5mg tablet Take one tablet by mouth daily with food - Active folic acid 1 mg tablet take 1 tablet by ORAL route every 8 hours as needed 50 MG - Active Tirosint 50 mcg capsule take 1 capsule by oral route every day 50 MCG - Active meloxicam 15 mg tablet take 1 tablet by oral route every day 15 MG - Active Procedures Procedure Date Eye Exam [facility] 16 Advance Directives Directive Yes / No Effective Date File Name No Information Encounters Encounter Description Practice Location Reason(s) For Visit Diagnoses Date Provider Providers Copied on Encounter [facility], [address] [place] [address], [facility], tel: [phone] [facility] No Information 6 Deandremalinda Nichols. [address] [place] [address], [address]. tel: [phone] [facility], [address] [place] [address], [address], [place] tel: [phone] [facility] Age-related nuclear cataract, bilateralMyopia, bilateralRegular astigmatism, bilateralPresbyopiaCo njunctival hemorrhage, left eye 6 Cecilio Magdalena. [address] [place] [address], [address]. tel: [phone] [facility], [address] [place] [address], [facility], tel: [phone] [facility] No Information 6 Cecilio Nichols. [address] [place] [address], [facility]. tel: [phone] [facility], [address] [place] [address], [facility], [place] tel: [phone] [facility] No Information 6 Maritza Salmon. [address] [place] [address], [facility]. tel: [phone] Family History Family Member Type Diagnosis Age At Onset No Information Payers Payer name Insurance type Covered libertarian ID Authoriza tion(s) No Information Social History Type Description Quantity Date Captured Comments Sex Male Smoking Status No Information Chief Complaint And Reason For Visit No Information History Of Present Illness Encounter Date Complaint History Of Prese nt Illness No Information Instructions Date Instruction Additional Infor mation No Information Assessments Type Assessment Date No Information
== END 2024-09-03 10:11 | disposition home or self-care (01) ==
PROVIDERS: PCP Family Medicine; Visit Provider Otolaryngology
DX: I47.10 Supraventricular tachycardia, unspecified (principal); E78.5 Hyperlipidemia, unspecified; R94.31 Abnormal electrocardiogram [ECG] [EKG]
CPT/HCPCS: 93005

== ENCOUNTER 2024-09-09 00:56 | Day surgery (SDC) | payer MEDICARE, BC, SELFPAY ==
--- NOTE | 2024-08-26 11:31 | PC.NURSE ---
Report to the Outpatient Waiting Room, entrance under the green pavilion located off [facility], at time __0700am on date __09/09/24 . Planned Procedure Time: __0900am .? Time changes happen often and if your time is changed the preop area will call you the afternoon before. - You and your visitor will be asked to self-screen and do not enter if you have any COVID symptoms. Please call surgeon if you need to reschedule. - A mask is optional within the hospital at this time. Patients may have clear liquids (water, carbonated beverages, clear teas, apple juice) until 3 hours prior to surgery with a maximum of 20 ounces. - No food from midnight until time of surgery and no smoking, or chewing tobacco (or any form of nicotine). No chewing gum, candy or mints. (0600am) Take only the following medications with a SIP of water on the morning of surgery: Diltiazem DO NOT STOP ANY OF YOUR OTHER PRESCRIPTION MEDICATIONS PRIOR TO SURGERY EXCEPT THE FOLLOWING Hold all vitamins and supplements for 3 days per anesthesiologist.Date to take last dose___09/05/24 Medications to discontinue per physician Pt to Check to check with Dr Tolbert regarding NSAIDS and ASA instructions Date to take last dose____per Dr Tolbert Please no make-up, nail zimbabwean, hairspray, perfume, deodorant, or body powder the day of surgery.? No jewelry (including any body piercings) or valuables the day of surgery, leave them at home.? Please take a shower or bath the night before, or the morning of, surgery with an antibacterial soap.? Wear comfortable, loose fitting clothing.? - Jewelry must be removed prior to entering the operating room.? Rings and piercings that are not removed may be cut off. - The hospital will not accept responsibility for valuables.? - Please leave all valuables, including medications, at home the day of surgery. If you are going home after surgery, a licensed coal tram driver must drive you home.? - NO public transportation without another adult if you receive anesthesia. - We recommend that an adult stay with you for 24 hours following discharge. - We also recommend that you do not drive, make important decision, drink alcoholic beverages, or take any drugs that were not prescribed by your health care provider for at least 24 hours after your discharge time. Follow any additional instructions given to you from your surgeon. Telephone instructions given to __Patient and asked if any additional questions and then verbalized understanding. Patient advised to call surgeon office or pre surgery nurse liaison [phone] if any additional questions.
[2024-09-09] VITALS (8 sets, daily range): BP systolic 113–163; BP diastolic 66–88; PULSE 58–76; RESP 10–18; TEMP 36.1–36.3; O2SAT 91–99; BMI 27.2
--- OUTSIDE RECORDS SUMMARY | 2024-09-09 01:02 | XMS_ITS | Clinical Summary ---
Author Organization [facility] Address [address], [facility] [address] [place] [address] Phone Care Team Providers Care Supervisor Shed Workers Name Role Phone Gokul Sherman MD Unavailable [phone] Allergies No known active allergies Medications valACYclovir [...] on file Legal Sex Male 1:49 PM SHREDDED FILLER CIGAR MAKER MACHINE Gender Identity Not on file Sexual Orientation Not on file Last Filed Vital Signs Vital Sign Reading Time Taken Comments Blood Pressure 124/70 05/21/2018 8:52 AM SHREDDED FILLER CIGAR MAKER MACHINE Pulse 64 05/21/2018 8:52 AM SHREDDED FILLER CIGAR MAKER MACHINE Temperature 37 C (98.6 F) 05/21/2018 8:52 AM SHREDDED FILLER CIGAR MAKER MACHINE Respiratory Rate - - Oxygen Saturation 96% 05/21/2018 8:52 AM SHREDDED FILLER CIGAR MAKER MACHINE Inhaled Oxygen Concentration - - Weight 75.8 kg (167 lb) 05/21/2018 8:52 AM SHREDDED FILLER CIGAR MAKER MACHINE Height - - Body Mass Index - [...] age to complete this topic Insurance MEDICARE [facility] Care Teams Supervisor Shed Workers Relationship Specialty Start Date End Date Gokul Sherman MD [address] [address] Consulting Physician Oncology 05/08/18
--- OUTSIDE RECORDS SUMMARY | 2024-09-09 01:02 | XMS_ITS | Continuity of Care Document ---
Author Organization [facility] Address [address] [place] [address] Phone Care Team Providers Care 21 Dealer Name Role Phone Magdalena Hernandes OD Unavailable [...] - Active Procedures Procedure Date Eye Exam [facility] 16 Advance Directives Directive Yes / No Effective Date File Name No Information Encounters Encounter Description Practice Location Reason(s) For Visit Diagnoses Date Provider Providers Copied on Encounter [facility], [address] [place] [address], [facility], tel: [phone] [facility] No Information 6 Cecilio Nichols. [address] [place] [address], [address]. tel: [phone] [facility], [address] [place] [address], [address], [place] tel: [phone] [facility] Age-related nuclear cataract, bilateralMyopia, bilateralRegular astigmatism, bilateralPresbyopiaCo njunctival hemorrhage, left eye 6 Cecilio Magdalena. [address] [place] [address], [address]. tel: [phone] [facility], [address] [place] [address], [facility], tel: [phone] [facility] No Information 6 Cecilio Nichols. [address] [place] [address], [facility]. tel: [phone] [facility], [address] [place] [address], [facility], [place] tel: [phone] [facility] No Information 6 Maritza Salmon. [address] [place] [address], [facility]. tel: [phone] Family History Family Member Type Diagnosis Age At Onset No Information Payers Payer name Insurance type Covered alliance party ID Authoriza tion(s) No Information Social History Type Description Quantity Date Captured Comments Sex Male Smoking Status No Information Chief Complaint And Reason For Visit No Information History Of Present Illness Encounter Date Complaint History Of Prese nt Illness No Information Instructions Date Instruction Additional Infor mation No Information Assessments Type Assessment Date No Information
--- OUTSIDE RECORDS SUMMARY | 2024-09-09 01:03 | XMS_ITS | Data Portability ---
Author Organization [facility], [address] [place] [address] [place] Address [address] [place] [address] Care Team Providers Care Rv Technician Name Role Phone SENCARLIE NICOLE Primary Care Provider [phone] Assessment Encounter Date Assessment Date Assessment LastModified by Organization Details LastModified Time 08/12/2024 08/12/2024 IMPRESSION: 1. Right lower extremity swelling, rule out DVT. 2. Seronegative RA. 3. Osteoarthritis. 4. History of ulcerative colitis. PLAN: 1. Venous Doppler of the right lower extremity. 2. CIMZIA 400 mg subcutaneously x1 dose today. 3. Continue current nabumetone, methotrexate and folate dosing. 4. We will obtain a copy of his most recent labs from Dr. Salazar, his new primary care provider. 5. Followup visit in 2 months to coincide with his CIMZIA injection at that time. pia [email or web address] Not available 08/13/2024 10:27:50 Plan of Treatment Reminders Order Date Submit Date Provider Last Modified By Organization Details Last Modified Time Details Appointments Infusion 15.PRO 2024 10:30A M Infusion Not available Not available Not [...] 2) subcutane ous syringe kit 2024 025 sendy [facility] #[id number], [address], [place], [address], 08/12/2024 18:16:22 Cimzia 400 mg/2 mL (200 mg/mL x 2) subcutane ous syringe kit 2024 025 [facility]500[facility]/Pharmacy #[id number], [address] [place], [address], 07/15/2024 13:01:10 Cimzia 400 mg/2 mL (200 mg/mL x 2) subcutane ous syringe kit 2024 025 [facility]/Pharmacy #[id number], [address] [place], [address], 06/12/2024 15:07:23 Cimzia 400 mg/2 mL (200 mg/mL x 2) subcutane ous syringe kit 2023 024 [facility]/Pharmacy #[id number], [address] [place], [address], 05/13/2024 20:56:02 Patient TargetsNo targets recorded. Patient InstructionsNo instructions recorded. Reason for Referral None Reported. Results Created Date Observation Date Name Description Value Unit Range Abnormal Flag Note LastModifiedBy Organization Detail LastModifiedTime 08/13/1908/12/2024 CBC CBC Not Available [facility] [address] [place] [address], [id number], 08/12/2024 16:08:24 08/13/1908/12/2024 CBC WBC 6.2 K/uL 4.8- 10.8 Not Available [facility] [address] [place] [address], [id number], 08/12/2024 16:08:24 08/13/1908/12/2024 CBC RBC 3.97 M/uL 4.70-6 .10 low Not Available [facility] [address] [place] [address], [id number], 08/12/2024 16:08:24 08/13/19 25 08/12/2024 CBC HGB 12.6 g/dL 14.0-1 8.0 low Not Available [facility] [address] [place] [address], [id number], 08/12/2024 16:08:24 08/13/19 25 08/12/2024 CBC HCT 38.4 % 42.0-5 2.0 low Not Available [facility] [address] [place] [address], [id number], 08/12/2024 16:08:24 08/13/19 25 08/12/2024 CBC MCV 96.7 fL 80.0-9 4.0 high Not Available [facility] [address] [place] [address], [id number], 08/12/2024 16:08:24 08/13/19 25 08/12/2024 CBC MCH 31.7 pg 27.0- 31.0 high Not Available [facility] [address] [place] [address], [id number], 08/12/2024 16:08:24 08/13/19 25 08/12/2024 CBC MCHC 32.8 g/dL 32.0-3 6.0 Not Available [facility] [address] [place] [address], [id number], 08/12/2024 16:08:24 08/13/19 25 08/12/2024 CBC RDW-SD 55.2 fL 35.1 - 46.3 high Not Available [facility] [address] [place] [address], [id number], 08/12/2024 16:08:24 08/13/19 25 08/12/2024 CBC plt 231 K/uL 130-40 0 Not Available [facility] [address] [place] [address], [id number], 08/12/2024 16:08:24 08/13/19 25 08/12/2024 CBC MPV 10.4 fL 7.5- 11.8 Not Available [facility] [address] [place] [address], [id number], 08/12/2024 16:08:24 08/13/19 25 08/12/2024 ESR (eryt hrocy te sedim entat ion rate) , blood sed rate 27 mm/HR 0 - 20 high Not Available [facility] [address] [place] [address], [id number], 08/12/2024 16:24:29 08/13/19 25 08/12/2024 CMP, serum or plasm a comp. met. panel Not Available [facility] [address] [place] [address], [id number], 08/12/2024 16:26:32 08/13/19 25 08/12/2024 CMP, serum or plasm a sodium 137 mmol/ L 136-14 6 Not Available [facility] [address] [place] [address], [id number], 08/12/2024 16:26:32 08/13/19 25 08/12/2024 CMP, serum or plasm a potassium 4.0 mmol/ L 3.5-5. 1 Not Available [facility] [address] [place] [address], [id number], 08/12/2024 16:26:32 08/13/19 25 08/12/2024 CMP, serum or plasm a chloride 101 mmol/ L 98-110 Not Available [facility] [address] [place] [address], [id number], 08/12/2024 16:26:32 08/13/19 25 08/12/2024 CMP, serum or plasm a CO2 27 mEq/L 20-32 Not Available [facility] [address] [place] [address], [id number], 08/12/2024 16:26:32 08/13/19 25 08/12/2024 CMP, serum or plasm a anion gap 13 mmol/ L 10-22 Not Available [facility] [address] [place] [address], [id number], 08/12/2024 16:26:32 08/13/19 25 08/12/2024 CMP, serum or plasm a glucose 83 mg/dL 70-100 Not Available [facility] [address] [place] [address], [id number], 08/12/2024 16:26:32 08/13/19 25 08/12/2024 CMP, serum or plasm a calcium 9.3 mg/dL 8.4-10 .4 Not Available [facility] [address] [place] [address], [id number], 08/12/2024 16:26:32 08/13/19 25 08/12/2024 CMP, serum or plasm a total protein 7.2 g/dL 6.4-8. 3 Not Available [facility] [address] [place] [address], [id number], 08/12/2024 16:26:32 08/13/19 25 08/12/2024 CMP, serum or plasm a albumin 4.4 g/dL 3.5-5. 3 Not Available [facility] [address] [place] [address], [id number], 08/12/2024 16:26:32 08/13/19 25 08/12/2024 CMP, serum or plasm a ALP 133 U/L 44 - 127 high Not Available [facility] [address] [place] [address], [id number], 08/12/2024 16:26:32 08/13/19 25 08/12/2024 CMP, serum or plasm a AST (SGOT) 28 U/L 10-40 Not Available [facility] [address] [place] [address], [id number], 08/12/2024 16:26:32 08/13/19 25 08/12/2024 CMP, serum or plasm a total bilirubin 0.5 mg/dL 0.2-1. 2 Not Available [facility] [address] [place] [address], 78[address], 08/12/2024 16:26:32 08/13/19 25 08/12/2024 CMP, serum or plasm a ALT (SGPT) 20 U/L 8-35 Not Available [facility] [address] [place] [address], [address]53, 08/12/2024 16:26:32 08/13/19 25 08/12/2024 CMP, serum or plasm a BUN 17 mg/dL 7-21 Not Available [facility] [address] [place] [address], [address], 08/12/2024 16:26:32 08/13/19 25 08/12/2024 CMP, serum or plasm a creatinine 0.9 mg/dL 0.7-1. 3 Not Available [facility] [address] [place] [address], [id number], 08/12/2024 16:26:32 08/13/19 25 08/12/2024 CMP, serum or plasm a CKD-epi GFR 90 eGFR was calcu lated using the 2020 CKD-E PI equat ion. (Digital Marketing Executive wendy Kidne y Disea se has an eGFR less than 60 mL/mi n/1.7 3mm for a perio d of three month s or more. ) This calcu latio n has not been valid ated for patie nt ages <18 or >90 years old. Not Available [facility] [address] [place] [address], [id number], 08/12/2024 16:26:32 08/13/19 25 08/12/2024 C-butch ctive prote in, quant itati ve, serum or plasm a CRP Not Available [facility] [address] [place] [address], [address]57, 08/12/2024 16:26:34 08/13/19 25 08/12/2024 C-butch ctive prote in, quant itati ve, serum or plasm a CRP <0.5 mg/dL <0.4-0 .5 Not Available [facility] [address] [place] [address], [id number], 08/12/2024 16:26:34 09/06/19 25 US, doppl er, venou s No observ ation record ed. odeets Not Available 2024 13:56:51 Result Notes None recorded. Problems Name Problem SNOMED Code Status Onset Date Resolution Date Notes Provider Name and Address Organization Details Recorded Time Central retinal artery occlusion 70809811 Active 2023 Mohan Rodriguez MD [address] [place] [address], [address], [facility] 4 12:13:31 Seronegativ e rheumatoid arthritis 117917037 Active 2023 Mohan Rodriguez MD [address] [place] [address], [address], [facility] 5 11:51:50 Pain of left hip joint 2878260248670 00 Active 2023 Hernandez Shore [facility] 4 09:39:39 Lumbar radiculopat hy 406063068 Active 2023 Mohan Rodriguez MD [address] [place] [address], [address], [facility] 4 12:34:22 Low back pain 946765031 Active 2023 Hernandez Shore [facility] 4 09:41:12 Acute sinusitis 37212457 Active 2023 Hernandez Shore [facility] 4 09:47:52 Anemia 705898497 Active 2023 Joyce Ayala [facility] 4 12:48:41 Swelling of right lower limb 115258705 Active 2024 Mohan Rodriguez MD [address], [place], [address], [facility] 5 11:52:00 Degenerativ e joint disease involving multiple joints 946002208 Active 2024 Mohan Rodriguez MD [address] [place], [address], [facility] 5 11:52:08 Degeneratio n of lumbar interverteb ral disc 63612225 Active 2023 Mohan Rodriguez MD [address] , [place], [address], [facility] 4 12:55:09 Seronegativ e rheumatoid arthritis of multiple joints 8039447797445 09 [facility] 4 14:36:13 Renal insufficien cy 180685625 Active 2023 Kathia Szymanski [facility] 4 14:37:38 Ulcerative colitis 76729131 Active 2023 Kathia Szymanski [facility] 4 14:38:43 Osteoarthri tis 654497445 Active 2023 Kathia Szymanski [facility] 4 14:39:30 Polyarthrop athy 63096451 Active 2023 Kathia Szymanski [facility] 4 14:45:41 Undifferent iated inflammator y arthritis 650604975 Active 2023 Kathia Szymanski [facility] 4 14:46:59 Peripheral vascular disease 258121723 Active 2023 Kathia Szymanski [facility] 4 14:47:32 Problem Notes None recorded. Procedures Surgical History Date Name Laterality Status Provider Name and Address Organization Details Recorded Time 5 [place] 800 [facility] 13:14:31 5 [place] 800 Infusion Record-Rheum completed Vonda Wilde [facility] 07/15/2024 12:51:58 5 [place] 800 [facility] Record[facility]Rheum [facility] 06/12/2024 12:23:07 4 [place] 800 [facility]um [facility] 05/13/2024 14:13:07 4 [place] 800 Infusion Record-Rheum active Malika [facility] 04/15/2024 13:10:15 4 [place] 800 Infusion Record-Rheum completed Malika [facility] 03/18/2024 13:31:38 4 [place] 800 [facility]fusion Record-Rheum [facility] 02/19/2024 12:53:42 4 [place] 800 [facility]fusion Record-Rheum [facility] 01/22/2024 13:08:23 4 [place] [facility]fusion Record-Rheum completed [facility] 12/25/2023 12:44:36 4 [place] 800 [facility]Rheum [facility]23 12:38:23 4 [place] 800 [facility]um [facility] 10/20/2023 13:08:42 4 [place] 800 [facility]Rheum [facility] 09/22/2023 15:24:51 Imaging Results Imaging Date Name Status LastModified by Organiz ation Details LastModified Time 09/05/2024 US, doppler, venous completed odeets Information not available 09/05/2024 13:56:51 Procedure Notes None recorded. Medical Equipment None Reported. Allergies Allergen ID Allergen Name Allergen Category Reaction Reaction Severity Criticality Documentation Date Start Date Code Code System Note Provider Name and Address Organization Details Recorded Time 322994 hydroxych loroquine sulfate medicatio n other Not available Not available 07/03/20232016 09304 2 RxNorm React ion: Radhaa l Distu rbanc e; Comme nt: Deonte madina s: DEA DIAZ Aida 2022 2:28P M TAENing JUSTIN LEHMAN S; ; Not Available Not Available [...] Not Available No t Available amoxicillin 875 mg-rahuliu m clavulanate 125 mg tablet TAKE 1 TABLET BY MOUTH EVERY 12 HOURS FOR 10 DAYS active Not Available Not Available No t Available nabumetone 500 mg tablet TAKE 1 TABLET TWICE A DAY BY ORAL ROUTE WITH MEAL(S). active Not Available Not Available No t Available methotrexat e sodium (PF) 25 mg/mL injection [...] Updated DateTime 5 167.64 cm 26.8 kg/m2 89291.3 3 g 66 /min 91 % 91 % 124 mm[Hg] 80 mm[Hg] Luzma moreau [facility] 5 11:10:58 Social History Question Answer Notes LastModified by Organizat ion Details LastModified Time Tobacco Smoking Status Former Smoker Joyce Ayala [facility] 04/02/2024 12:03:20 How Many Packs Per Day [...] Time zoster recombinant 9 completed Lina Rodríguez [facility] 09/05/2023 09:15:38 zoster recombinant 9 [facility] Lina Rodríguez [facility] 09/05/2023 09:15:38 Pneumococcal conjugate PCV 13 0 completed Lina Rodríguez [facility] 09/05/2023 09:15:38 Influenza, high-dose, trivalent, PF 9 richard Rodríguez [facility] 09/05/2023 09:15:38 Influenza, split virus, trivalent, preservative 6 completed Lina Rodríguez [facility] 09/05/2023 09:15:38 Past Encounters Encounter ID Performer Location Encounter Start Date Encounter Closed Date Diagnosis/Indication Diagnosis SNOMED-CT Code Diagnosis ICD10 Code Diagnosis Note [id number] Mohan Rodriguez MD 800 [facility] [place]gy [place] [address] [place] [address], [place] [address] 09/05/2023 08:58:16 09/05/2023 13:52:30 Polyarthropathy 51882971 M13.0 Seronegati ve rheumatoid arthritis 362608369 M06.09 Lumbar radiculopathy 128 228279 M54.16 Osteoarthritis 325746761 M19.90 Ulcerative colitis 16981 004 K51.919 High risk medication monitoring indicated 7038685765 1762951 Z76.89 Z79.631 Pain of le ft hip joint 2666193557 44091 M25.288 [id number] Andrzej Mosquera [facility] ([place] [address] [place] [address] 09/22/2023 13:13:48 09/22/2023 16:45:50 Polyarthropathy 13029192 M13.0 [id number] Andrzej Garcialeeanne [facility] [address] [place] [address] 10/20/2023 12:00:32 10/20/2023 13:09:29 Polyarthropathy 40032216 M13.0 [id number] Andrzej patricia Mosquera [facility] [place] [address], [place] [address] 11/16/2023 11:18:44 11/16/2023 13:09:16 Polyarthropathy 44854492 M13.0 [id number] Mohan Rodriguez MD [address] [facility] [place] [address] [place] [address] 12/25/2023 11:16:29 12/25/2023 13:50:12 Osteoarthritis 544773620 M19.90 Degenerati on of lumbar intervertebral disc 62038110 M51.36 Rheumatoid arthritis of multiple joints 577699680 M06.89 Long-term drug therapy 104282816 Z79.028 [id number] Mohan Rodriguez MD 800 [facility] [address] [place] [address] 12/25/2023 11:16:29 12/25/2023 13:50:12 Polyarthropathy 01411996 M13.0 [id number] Mohan Rodriguez MD 800 [facility] [address] [place] [address] 01/22/2024 11:56:04 01/22/2024 13:05:04 Polyarthropathy 26155063 M13.0 [id number] Mohan Rodriguez MD 800 [facility] [place] [address] [place] [address] 01/26/2024 10:51:33 01/26/2024 18:17:42 Central retinal artery occlusion 46938871 H34.10 Osteoarthritis 428879824 M19.90 Rheumatoid arthritis of multiple joints 594110947 M05.89 Additional diagnosis detail: Other rheumatoid arthritis with rheumatoid factor of multiple sites [facility] methotrexate user 2449606204 00 Z79.503 [id number] Mohan Rodriguez MD 800 [facility] [address] [place] [address],[address] [place] [address] 02/19/2024 11:42:30 02/21/2024 11:13:45 Polyarthropathy 09784042 M13.0 [id number] Mohan Rodriguez MD 800 [facility] [address] [place] [address],[address] [place] [address] 03/18/2024 11:43:05 03/18/2024 13:33:47 Polyarthropathy 42553347 M13.0 [id number] Mohan Rodriguez MD 800 [facility] [place] [address] [place] [address],[address] [place] [address] 04/02/2024 11:27:00 04/02/2024 18:18:45 Seronegative rheumatoid arthritis 367366829 M06.09 Ulcerative colitis 14917 004 K51.919 Osteoarthritis 721842673 M19.90 Lumbar radiculopathy 128 390138 M54.16 [id number] Mohan Rodriguez MD 800 [facility] [place] [address] [place] [address] 05/13/2024 10:49:12 05/13/2024 14:13:57 Polyarthropathy 93939264 M13.0 [id number] Mohan Rodriguez MD 800 [facility] [address], [place] [address] 06/12/2024 09:59:26 06/12/2024 12:25:11 Polyarthropathy 77035412 M13.0 [id number] Mohan Rodriguez MD 800 [facility] [address] t [facility] [place] [address] 07/15/2024 11:48:03 07/15/2024 12:53:20 Polyarthropathy 11097650 M13.0 [id number] Mohan Rodriguez MD 800 [facility] [place] [address] t [facility] [place] [address] 08/12/2024 10:58:16 08/13/2024 18:21:59 Seronegative rheumatoid arthritis 569879378 M06.00 Swelling o f right lower limb 379123048 M79.89 Degenerati ve joint disease involving multiple joints 049064281 M15.9 [id number] Mohan Rodriguez MD 800 [facility] ([place] [address] t [facility] [place] [address] 08/12/2024 12:43:25 08/12/2024 13:18:30 Polyarthropathy 68507051 M13.0 Health Concerns Section Related Observation LastModified by Organization Detai ls LastModified Time None Recorded Concern Status LastModified by Organization Details LastModified Time None Recorded Advance Directives Directive None Recorded Payers Encounter Date Sequence Insurance Name Policy Number Policy Milligan Covered Member ID Milligan Member ID Guarantor Name 05/13/2024 1 [place] Raul Avitia [id number] Raul Avitia 05/13/2024 2 [place] 105 Raul Avitia [id number] Raul Avitia 06/12/2024 1 [place] Raul Avitia [id number] Raul Avitia 06/12/2024 2 [place] 105 Raul Avitia [id number] Raul Avitia 07/15/2024 1 [place] Raul Avitia [id number] Raul Avitia 07/15/2024 2 [facility] 105 Raul Avitia [id number] Raul Avitia 08/12/2024 1 [place] Raul Avitia [id number] Raul Avitia 08/12/2024 2 [facility] 105 Raul Avitia [id number] Raul Avitia 08/12/2024 1 [place] Raul Avitia [id number] Raul Avitia 08/12/2024 2 [facility] 105 Raul Avitia [id number] Raul Avitia Notes Date Note Type Note Provider Name and Address Organization Details Recorded Time 08/12/2024 text/html The patient is a 74-year-old gentleman with seronegative RA and osteoarthritis, who is here today for a followup visit and for his next CIMZIA injection. He continues on methotrexate in conjunction with his CIMZIA and nabumetone therapy twice daily. He states for the past week he has been encountering some increasing stiffness and soreness. He can tell he is definitely due for his CIMZIA injection. He does have chronic mechanical lower back pain and does see Pain Management. He is currently in physical therapy for his back. He rates his overall pain score a 5/10 on a scale. His morning stiffness currently is lasting up to an hour in duration. The patient currently does exercise on a treadmill and a bike when he gets a chance. He recently did suffer a bout of coughing with phlegm. He is to see an ENT specialist next week to address issues with allergic rhinitis and chronic sinus drainage. He has had no fever or chills. No shortness of breath or chest pain. No hemoptysis, epistaxis, GERD, melena or hematochezia. He does have a history of ulcerative colitis and sees Dr. Gurmeet Zhou. He reports his current regimen does help control his ulcerative colitis. He recently underwent labs at the [facility] by his new primary care provider, Dr. Elsa Salazar. He denies any gross hematuria, renal calculi, bleeding from the nares or gums, numbness or tingling. He has noticed for the past week spontaneous onset of right lower extremity swelling. He has never had this before. He denies any trauma to the leg. No changes in footwear. The swelling extends from his upper calf throughout the ankle and foot. He is able to ambulate on the limb without any ambulatory claudication. As noted above, he is able to perform all of his usual exercises using the legs without any difficulty. No weakness. He has not noticed any foot drop.pia Mohan Rodriguez MD [address] [place] [address], [phone], [facility] 08/14/2024 20:46:17
[2024-09-09] MEDS: OXYMETAZOLINE HCL 0.05% NAS 15 ML BTL (*BKC) 1 SPRAY NASAL (08:10)
[2024-09-09] MEDS: ACETAMINOPHEN 500 MG TABLET 1000 MG PO (08:10)
[2024-09-09] MEDS: LACTATED RINGERS 1,000 ML 30 ML IV CONT ×2 (08:23→10:49)
--- NOTE | 2024-09-09 09:09 | WPDHPUPDATE1 ---
History and Physical Update Update Date/Time: 09/09/24 09:09 History and Physical has been reviewed, including an updated exam of the patient. There are NO changes in the patient's condition. Risks, benefits, and alternatives have been discussed and questions answered. Patient agrees to proceed with procedure.
--- NOTE | 2024-09-09 09:20 | WPDANESEPPF ---
Anes - Initial Pre Proc Eval Procedure: Operation Date: 09/09/24 09:30 Proposed Procedures p Bilateral Turbinate Reduction, Bilateral Maxillary Antrostomy - Jaron Tolbert MD s Septoplasty - Jaron Tolbert MD Date/Time: 09/09/24 09:20 Surgeon: Jaron Tolbert MD Pre Op Diagnosis: Dev Septum,Turbinate Hypertrophy Sinusitis Patient Data Age: 74 Gender: M Height: 1.65 m Weight: 74.3 kg Last Vital Signs Temp 97 F L 09/09/24 07:51 Pulse 75 09/09/24 07:51 Resp 18 09/09/24 07:51 BP 163/88 H 09/09/24 07:51 Pulse Ox 99 09/09/24 07:51 O2 Del Method Room Air 09/09/24 07:51 Allergies Allergy/AdvReac Type Severity Reaction Status Date / Time No Known Allergies Allergy Unknown Verified 09/09/24 08:21 Home Medications ?Medication ?Instructions ?Recorded ?Confirmed ?Type aspirin 81 mg tablet,delayed 81 mg PO DAILY 11/04/20 09/09/24 History release (Adult Aspirin Regimen) diltiazem HCl 240 mg capsule,24 240 mg PO DAILY 11/04/20 09/09/24 History hr,extended release fluticasone propionate 50 1 spray intranasal DAILY 11/04/20 09/09/24 History mcg/actuation nasal spray,suspension folic acid 0.8 mg capsule 0.8 mg PO DAILY 11/04/20 09/09/24 History insulin syringe-needle U-100 1 mL 11/04/20 08/26/24 History 25 gauge x 5/8 (BD Insulin Syringe) mesalamine 1.2 gram tablet,delayed 2.4 g PO DAILY 11/04/20 09/09/24 History release methotrexate (PF) 25 mg/0.4 mL 50 mg subcut WEEKLY 11/04/20 09/09/24 History subcutaneous auto-injector nabumetone 500 mg tablet 500 mg PO BID 11/04/20 09/09/24 History atorvastatin 10 mg tablet 10 mg PO DAILY 11/17/22 09/09/24 History certolizumab pegol 400 mg/2 mL 400 mg subcut ONCE 11/17/22 09/09/24 History (200 mg/mL x2) subcutaneous syringe kit (Cimzia) benzonatate 200 mg capsule 200 mg PO TID PRN cough #30 caps 07/12/24 08/26/24 Rx tadalafil 5 mg tablet See Rx Instructions .Route 08/22/24 09/09/24 Rx .COMPLEX #90 tabs valacyclovir 500 mg tablet See Rx Instructions .Route 08/22/24 09/09/24 Rx .COMPLEX #90 tabs Patient hx anesthesia problems: none Family hx anesthesia problems: none Results Review: All pre-operative results and documents have been reviewed as part of the pre-operative evaluation. [facility] Past Medical History Medical History Arrhythmia Right rotator cuff tear Hernia Ulcerative colitis Rheumatoid arthritis Surgical History Surgical History History of hernia repair History of cataract extraction History of total left knee replacement 2013 History of bunionectomy H/O vasectomy Family History Family History Father Heart disease Diabetes mellitus Mother Cancer Social History Social History Smoking packs per day: 2 Smoking cigarettes per day: 40.0 Years smoked: 30 Smoking pack-years: 60.00 Smoking status: Former smoker Smoking end date: 06/05/98 Alcohol intake: never Substance use: never Substance use type: does not use Lack of Transportation: No Lack of Food: Never True Current Housing: I Have Housing Concerned About Future Housing: Decline to Answer Difficulty Paying Gas/Electric Bills: Decline to Answer Difficulty Paying for Meds: Decline to Answer Currently Unemployed: Decline to Answer Education: Decline to Answer Difficulty w/ Childcare or Family Care: Decline to Answer Living arrangements: with family Additional living arrangements comments: Occupation/Education: retired Gender identity (if verbalized by the patient): Male Sexual Orientation (if Verbalized by the Patient): Straight or Heterosexual Spiritual care concerns: No Anes - Eval Final PreProcedure Day of Procedure 09/09/24 09:20 Patient weight: overweight Lungs: normal air movement Airway: Mallampati scale class II Neurological: alert and oriented Last oral intake: >/= 8 hours ASA classification: III Emergent: no Anesthetic plan: proceed Anesthesia type and monitoring: general ETT and standard monitoring Results Review: All pre-operative results and documents have been reviewed as part of the pre-operative evaluation. HTN, hyperlipidemia, Ulcerative colitis/RA. Hx of SVT but on CCB w good control. Active w rowing/bikes, no cp or sob. Informed Consent: The patient's anesthetic plan and its attendant risks and benefits were discussed with the patient/family/POA. Questions were solicited and answers provided to the satisfaction of the patient/family/POA.
[2024-09-09] MEDS: LIDO 1%/EPINEPHRINE 1:100,000 50 ML VIAL INFILTRATE (09:30)
[2024-09-09] MEDS: MUPIROCIN 2% OINT 22 GM TUBE 1 APPLIC TOPICAL (10:32)
--- NOTE | 2024-09-09 10:40 | P.OP_ITS ---
Procedure Note - Detailed Date of Procedure 09/09/24 Pre-op Diagnosis Dev Septum,Turbinate Hypertrophy Sinusitis Post-op Diagnosis Same Procedure Performed Septoplasty, turbinoplasty, bilateral maxillary antrostomy Surgeon Jaron Tolbert MD Anesthesia General Indications deviated septum, chronic maxillary sinusitis, turbinate hypertrophy Findings significant left septal deviation, bilateral thick mucous in maxillary sinuses. Haskins splints and nasopore placed Description of Procedure DESCRIPTION OF PROCEDURE: ? After obtaining informed consent and proper site verification the patient was brought to the operating room and placed on the operating table in the supine position. They were placed under general endotracheal anesthesia by the anesthesia provider. The patient was then draped in standard fashion for septoplasty and turbinoplasty. A timeout was performed and the correct patient and procedure were verified. The nasal cavity was injected with 1% lidocaine with 1-100,000 epinephrine and packed with afrin-soaked cottonoid pledgets. ? Attention was then directed to the nasal septum. A hemitransfixion incision was made in the left caudal septum and a mucoperichondrial flap was elevated in the usual fashion. The flap was elevated under endoscopic visualization and the remainder of the case was performed with endoscopic assistance. Using a D- knife, an incision was made through the cartilaginous septum with care to preserve the appropriate caudal and dorsal ?L-strut? of cartilage. The cartilage was then disarticulated from the bony-cartilaginous junction and the deviated cartilage was removed. Further deviated bone and cartilage was removed from the maxillary crest and posterior bony septum with care to avoid injury to the mucoperichondrial flap using a combination of dissection and Saw- Sen forceps. Once this was completed, the hemitransfixion incision was closed using simple interrupted 4-0 chromic suture. A quilting stitch to reapproximate the mucoperichondrial flaps was then placed using 4-0 plain gut suture on a Mendel needle. Next, the middle turbinate was medialized on the right. A missael probe was used to reflect the uncinate anteriorly. A backbiter performed uncinectomy and maxillary antrostomy. This was refined with microdebrider until the maxillary antrostomy was widely patent. This was then repeated on the left side in an identical fashion. ? Next attention was directed to the turbinates. Using a 0? telescope and 2mm turbinate blade microdebrider, a stab incision was made in the anterior face of the turbinate and dissection was carried posterior to perform submucosal resection. Next the turbinate was outfractured using a blunt instrument. A similar procedure was then performed on the right-hand side without difficulty. Nasopore was placed in the middle meatus bilaterally. Haskins splints covered in mupirocin ointment were placed in the nasal cavity and secured to the membranous septum using a 3-0 Nylon suture. ?The patient was awakened from general anesthesia extubated in the operating room, and transported to the recovery room in stable condition without complication. Estimated Blood Loss 10 Drains No Packing Yes (haskins splints, nasopore bilaterally) Pathology None sent Complications No immediate complications Condition Stable Disposition PACU
[2024-09-09] MEDS: fentaNYL CITRATE INJ (*CRX) 100 MCG/2 ML VIAL 25 MCG IV PUSH (12:00)
[2024-09-09] MEDS: oxyCODONE HCL (*CRX) 5 MG TAB IR PO (12:13)
== END 2024-09-09 12:53 | disposition home or self-care (01) ==
PROVIDERS: PCP Family Medicine; Visit Provider Otolaryngology
PROC: (CPT 30520; principal; 2024-09-09 09:30)
PROC: (CPT 30520; 2024-09-09 09:30)
DX: J32.0 Chronic maxillary sinusitis (principal); J34.2 Deviated nasal septum; J34.3 Hypertrophy of nasal turbinates; I10 Essential (primary) hypertension; E78.5 Hyperlipidemia, unspecified; I47.10 Supraventricular tachycardia, unspecified; I49.9 Cardiac arrhythmia, unspecified; M06.9 Rheumatoid arthritis, unspecified; Z79.82 Long term (current) use of aspirin; Z79.4 Long term (current) use of insulin; Z98.890 Other specified postprocedural states; Z87.891 Personal history of nicotine dependence; Z87.19 Personal history of other diseases of the digestive system; Z80.9 Family history of malignant neoplasm, unspecified; Z82.49 Family history of ischemic heart disease and other diseases of the circulatory system
CPT/HCPCS: 30520; 31256; 30140; A9270; J1100; J1596; J2003; J2004; J2371; J2405; J2704; J3010; J7050; J7120

== ENCOUNTER 2024-10-31 08:15 | Outpatient (CLI) | payer MEDICARE, BC, SELFPAY ==
--- NOTE | ~2024-10-31 | US_ITS ---
EXAMINATION: US soft tissue groin RT DATE: 10/31/2024 09:02 INDICATION: Unilateral inguinal hernia without obstruction TECHNIQUE: Multiple grayscale and Doppler ultrasound images of the right inguinal region of concern w ere obtained. COMPARISON: None FINDINGS: There are multiple peristalsing loops of bowel deep to the anterior pelvic wall at the region of conc joaquina. No evident right inguinal hernia or other abnormal masses or fluid collections identified. Nonhe modynamically significant atherosclerotic calcifications are seen along the bilateral iliac arteries. . IMPRESSION: 1. No right inguinal hernia or other abnormal masses or fluid collections identified at the region of concern. Reviewed, dictated and finalized at location A. IMPRESSION: 1. No right inguinal hernia or other abnormal masses or fluid collections ident ified at the region of concern.
--- NOTE | ~2024-10-31 | US_ITS ---
EXAMINATION: US aorta [facility] DATE: 10/31/2024 09:02 INDICATION: Encounter for screening for cardiovascular disorder. TECHNIQUE: Grayscale, color Doppler, and pulsed Doppler images of the aorta and common iliac arteries were obtained. COMPARISON: None. FINDINGS: The proximal aorta measures 3.2 cm. The mid aorta measures 2.4 cm. The distal aorta measures 2.1 cm. The right common iliac artery measures 1.4 cm. The left common iliac artery measures 1.4 cm. IMPRESSION: 1. Normal caliber abdominal aorta. Reviewed, dictated and finalized at location A.
--- OUTSIDE RECORDS SUMMARY | 2024-10-31 08:26 | XMS_ITS | Clinical Summary ---
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 Pulse 64 05/21/2018 8:52 AM 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
--- OUTSIDE RECORDS SUMMARY | 2024-10-31 08:26 | XMS_ITS | Continuity of Care Document ---
Author Organization [facility] Address [address] [place] [address] Phone Care Team Providers Care Automotive Service Consultant Name Role Phone Magdalena Hernandes OD Unavailable [...] Diagnoses Date Provider Providers Copied on Encounter [facility], [address] [place] [address], [facility], tel: [phone] [facility] No Information 6 Cecilio Nichols. [address] [place] [address], [address]. tel: [phone] [facility], [address] [place] [address], [address], [place] tel: [phone] [facility] Age-related nuclear cataract, bilateralMyopia, bilateralRegular astigmatism, bilateralPresbyopiaCo njunctival hemorrhage, left eye 6 Cecilio Magdalena. [address] [place] [address], [address]. tel: [phone] [facility], [address] [place] [address], [facility], tel: [phone] [facility] No Information 6 Cecilio Nichols. [address] [place] [address], [facility]. tel: [phone] [facility], [address] [place] [address], [facility], [place] tel: [phone] [facility] No Information 6 Maritza Salmon. [address] [place] [address], [facility]. tel: [phone] Family History Family Member Type Diagnosis Age At Onset No Information Payers Payer name Insurance type Covered republican ID Authoriza tion(s) No Information Social History Type Description Quantity Date Captured Comments Sex Male Smoking Status No Information Chief Complaint And Reason For Visit No Information History Of Present Illness Encounter Date Complaint History Of Prese nt Illness No Information Instructions Date Instruction Additional Infor mation No Information Assessments Type Assessment Date No Information
== END 2024-10-31 08:16 | disposition home or self-care (01) ==
PROVIDERS: PCP Family Medicine; Visit Provider Family Medicine
DX: K40.90 Unilateral inguinal hernia, without obstruction or gangrene, not specified as recurrent (principal)
CPT/HCPCS: 76706; 76882

== ENCOUNTER 2024-11-01 10:54 | Emergency (ER) | payer MEDICARE, BC, SELFPAY ==
[2024-11-01 11:05] VITALS: BP 139/69; PULSE 69; RESP 16; TEMP 36.7; O2SAT 100
--- OUTSIDE RECORDS SUMMARY | 2024-11-01 11:05 | XMS_ITS | Clinical Summary ---
Author Organization 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 Gender Identity Not on file Sexual Orientation Not on file Last Filed Vital Signs Vital Sign Reading Time Taken Comments Blood Pressure 124/70 05/21/2018 8:52 AM EXPORT DOCUMENTS CLERK Pulse 64 05/21/2018 8:52 AM EXPORT DOCUMENTS CLERK Temperature 37 C (98.6 F) 05/21/2018 8:52 AM EXPORT DOCUMENTS CLERK Respiratory Rate - - Oxygen Saturation 96% 05/21/2018 8:52 AM EXPORT DOCUMENTS CLERK Inhaled Oxygen Concentration - - Weight 75.8 kg (167 lb) 05/21/2018 8:52 AM EXPORT DOCUMENTS CLERK Height - - Body Mass Index - [...] age to complete this topic Insurance MEDICARE [facility] Care Teams Reconsignment Clerk Relationship Specialty Start Date End Date Gokul Sherman MD [address] [address] Consulting Physician Oncology 05/08/18
--- OUTSIDE RECORDS SUMMARY | 2024-11-01 11:05 | XMS_ITS | Continuity of Care Document ---
Author Organization [facility] Address [address] [place] [address] Phone Care Team Providers Care Stereotype Finisher Name Role Phone Mgadalena Hernandes OD Unavailable Unavailable Allergies, Adverse Reactions, [...] - Active Procedures Procedure Date Eye Exam [facility] 16 Advance Directives Directive Yes / No Effective Date File Name No Information Encounters Encounter Description Practice Location Reason(s) For Visit Diagnoses Date Provider Providers Copied on Encounter [facility], [address] [place] [address], [facility], tel: [phone] [facility] No Information 6 Cecilio Nichols. [address] [place] [address], [address]. tel: [phone] [facility], [address] [place] [address], [address], [place] tel: [phone] [facility] Age-related nuclear cataract, bilateralMyopia, bilateralRegular astigmatism, bilateralPresbyopiaCo njunctival hemorrhage, left eye 6 Cecilio Magdalena. [address] [place] [address], [address]. tel: [phone] [facility], [address] [place] [address], [facility], tel: [phone] [facility] No Information 6 Cecilio Nichols. [address] [place] [address], [facility]. tel: [phone] [facility], [address] [place] [address], [facility], [place] tel: [phone] [facility] No Information 6 Maritza Salmon. [address] [place] [address], [facility]. tel: [phone] Family History Family Member Type Diagnosis Age At Onset No Information Payers Payer name Insurance type Covered constitution party ID Authoriza tion(s) No Information Social History Type Description Quantity Date Captured Comments Sex Male Smoking Status No Information Chief Complaint And Reason For Visit No Information History Of Present Illness Encounter Date Complaint History Of Prese nt Illness No Information Instructions Date Instruction Additional Infor mation No Information Assessments Type Assessment Date No Information
--- NOTE | 2024-11-01 11:06 | ED.MALEGU ---
HPI - Male Genitourinary General Chief complaint: Urogenital-Male Stated complaint: urinary pain Time Seen by Provider: 11/01/24 11:22 Source: patient, RN notes reviewed and old records reviewed Mode of arrival: ambulatory Limitations: no limitations History of Present Illness HPI Narrative: 74-year-old male presents to the [facility] with 1 week of increasing burning, frequency of urination. Denies any nausea vomiting. Denies abdominal pain. No CVA tenderness. Denies fevers. Related Data Home Medications ?Medication ?Instructions ?Recorded ?Confirmed ?Last Taken ?Type aspirin 81 mg tablet,delayed 81 mg PO DAILY 11/04/20 10/08/24 09/05/24 History release (Adult Aspirin Regimen) diltiazem HCl 240 mg capsule,24 240 mg PO DAILY 11/04/20 10/08/24 09/09/24 History hr,extended release fluticasone propionate 50 1 spray intranasal DAILY 11/04/20 10/08/24 09/08/24 History mcg/actuation nasal spray,suspension folic acid 0.8 mg capsule 0.8 mg PO DAILY 11/04/20 10/08/24 09/08/24 History insulin syringe-needle U-100 1 mL 11/04/20 10/08/24 Unknown History 25 gauge x 5/8 (BD Insulin Syringe) mesalamine 1.2 gram tablet,delayed 2.4 g PO DAILY 11/04/20 10/08/24 09/08/24 History release methotrexate (PF) 25 mg/0.4 mL 50 mg subcut WEEKLY 11/04/20 10/08/24 09/02/24 History subcutaneous auto-injector atorvastatin 10 mg tablet 10 mg PO DAILY 11/17/22 10/08/24 09/08/24 History certolizumab pegol 400 mg/2 mL 400 mg subcut ONCE 11/17/22 10/08/24 08/08/24 History (200 mg/mL x2) subcutaneous syringe kit (Cimzia) Allergies Allergy/AdvReac Type Severity Reaction Status Date / Time No Known Allergies Allergy Unknown Verified 11/01/24 11:01 Review of Systems Review of Systems: All systems reviewed & are unremarkable except as noted in HPI and below Constitutional: Constitutional: Reports no additional constitutional complaints ENT: Reports system reviewed and no additional complaints, except as documented Cardiovascular: Cardiovascular: Reports no additional cardiovascular complaints, Denies chest pain and Denies dyspnea Respiratory: Respiratory: Reports no additional respiratory complaints, Denies chest congestion, Denies cough and Denies dyspnea Gastrointestinal: Gastrointestinal: Reports no additional gastrointestinal complaints Genitourinary: Genitourinary: Reports as per HPI and Reports dysuria Musculoskeletal: Musculoskeletal: Reports no additional musculoskeletal complaints Integumentary/Breasts: Skin/Breast: Reports system reviewed and no additional complaints, except as docu PMFSH Past Medical History Medical History History of tobacco use disorder Arrhythmia Right rotator cuff tear Hernia Ulcerative colitis Rheumatoid arthritis Surgical History Surgical History History of hernia repair History of cataract extraction History of total left knee replacement 2014 History of bunionectomy H/O vasectomy Family History Family History Father Heart disease Diabetes mellitus Mother Cancer Social History Social History Smoking packs per day: 2 Smoking cigarettes per day: 40.0 Years smoked: 30 Smoking pack-years: 60.00 Smoking status: Former smoker Smoking end date: 06/05/98 Alcohol intake: never Substance use: never Substance use type: does not use Lack of Transportation: No Lack of Food: Never True Current Housing: I Have Housing Concerned About Future Housing: Decline to Answer Difficulty Paying Gas/Electric Bills: Decline to Answer Difficulty Paying for Meds: Decline to Answer Currently Unemployed: Decline to Answer Education: Decline to Answer Difficulty w/ Childcare or Family Care: Decline to Answer Living arrangements: with family Additional living arrangements comments: Occupation/Education: retired Gender identity (if verbalized by the patient): Male Sexual Orientation (if Verbalized by the Patient): Straight or Heterosexual Spiritual care concerns: No Comments At the time of my signature, I reviewed and agree with the nursing past medical, surgical, social, and family history. There is no relevant family history pertinent to the patient complaint. Exam Const: General: cooperative, healthy appearing, comfortable, no acute distress, well developed, alert and well nourished Nutritional Appearance: well nourished Orientation/consciousness: patient oriented x3 Limitations: no limitations HENMT: Head: normal to inspection Mouth: Yes Normal oral and palatal mucosa present, Yes lip normal, Yes tongue normal and Yes moist mucous membranes Eyes: General: appearance normal, both eyes and all related structures Alignment and Position: alignment normal Neck: Neck: normal visual inspection, full ROM, no lymphadenopathy and no meningeal signs Chest: Chest palpation & inspection: normal inspection of the chest Resp: Effort & Inspection: normal respiratory effort and able to speak in complete sentences Auscultation: clear to auscultation bilaterally, no crackles, no rales, no rhonchi and no wheezes Cardio: Rate: regular rate GI: GI Palp: No abdominal tenderness : General: Yes no CVA tenderness Skin: General skin exam: normal color and no rashes or lesions noted Neuro: General: patient oriented x3, gait normal, moves all extremities and no meningeal signs Cognition (Neuro): normal cognition Speech: normal speech Gait exam (Neuro): Normal gait present Extrem: General: normal to inspection, full ROM, capillary refill normal and normal gait Psych: Appearance: grossly normal and well kempt Mental Status: mental status grossly normal Speech and movement: Normal speech and movement present and Clear speech present Affect: normal affect Attitude: cooperative Course Course Level of Care: Express Care Visit Vital Signs Vital signs: Vital Signs Temperature 98.1 F 11/01/24 11:05 Pulse Rate 11/01/24 11:05 Respiratory Rate 16 11/01/24 11:05 Blood Pressure 139/69 11/01/24 11:05 Pulse Oximetry 100 11/01/24 11:05 Oxygen Delivery Room Air 11/01/24 11:05 Temperature 98.1 F 11/01/24 11:05 Pulse Rate 69 11/01/24 11:05 Respiratory Rate 16 11/01/24 11:05 Blood Pressure 139/69 11/01/24 11:05 Pulse Oximetry 100 11/01/24 11:05 Oxygen Delivery Room Air 11/01/24 11:05 Reviewed MDM - Male Genitourinary MDM Narrative Medical decision making narrative: Patient sitting in exam room. Patient is nontoxic, vitals are stable. Patient presents for urinary symptoms Urine dip shows positive leukocytes, will cover with antibiotic and sent for culture Patient appropriate for outpatient treatment and follow-up Discharge instructions reviewed with patient, as well as provided in writing per nursing staff. The instructions also include specific and strict return/GO TO THE ER as well as f/u information. All questions have been answered, and the patient deny any further questions with discharge and discharge plan. Some parts of this dictation were generated by voice recognition software and may contain typographical and/or grammatical inaccuracies. Differential Diagnosis Differential diagnosis: Likely urinary tract infection, urethritis, acute retention of urine and other Lab Data Labs: Lab Results 11/01/24 Range/Units 11:10 POC Urine Color Yellow POC Urine Clarity Clear POC Urine pH 6.0 POC Ur Specif [place] 1.010 POC Urine Protein Negative (Negative) POC Ur Glucose (UA) Negative (Negative) POC Urine Ketones Negative (Negative) POC Urine Blood Negative (Negative) POC Urine Nitrite Negative (Negative) POC Urine Bilirubin Negative (Negative) POC Urine Urobilinogen 0.2 POC U Leukocyte Esteras 1+ (Negative) Reviewed Critical Care Time Critical Care Time Critical Care Time: No Discharge Plan Discharge Clinical Impression: Urinary tract infection Qualifiers: Urinary tract infection type: site unspecified Hematuria presence: without hematuria Qualified Code(s): N39.0 - Urinary tract infection, site not specified Patient Disposition: Home Condition: Stable Instructions: Antibiotic Form, Urinary Tract Infection in Men (ED) Additional Instructions: Increased water intake Take Tylenol as needed for pain Take antibiotic as prescribed Today your urine dip showed a probability of a UTI. You have been prescribed an antibiotic. Your urine will be sent to our lab for a culture. If at that time a bacteria grows that is not covered by the antibiotic prescribed you will be notified. Follow-up with primary care For new or worsening symptoms go directly to the emergency room Patient Language: Burkinan Prescriptions: New amoxicillin-pot clavulanate 875-125 mg tablet 1 tablet PO Q12H Qty: 10 0RF No Action fluticasone propionate 50 mcg/actuation spray,suspension 1 spray intranasal DAILY Rx Instructions: administer into each nostril aspirin [Adult Aspirin Regimen] 81 mg tablet,delayed release (DR/EC) 81 mg PO DAILY diltiazem HCl 240 mg capsule,extended release 24 hr 240 mg PO DAILY mesalamine 1.2 gram tablet,delayed release (DR/EC) 2.4 g PO DAILY methotrexate (PF) 25 mg/0.4 mL auto-injector 50 mg subcut WEEKLY folic acid 0.8 mg capsule 0.8 mg PO DAILY (DME) BD Insulin Syringe 1 mL 25 gauge x 5/8 syringe See Rx Instructions .Route Rx Instructions: As directed atorvastatin 10 mg tablet 10 mg PO DAILY Cimzia 400 mg/2 mL (200 mg/mL x 2) syringe kit 400 mg subcut ONCE Rx Instructions: administer as 2 equally divided doses at 2 different sites in abdomen or thigh valacyclovir 500 mg tablet See Rx Instructions .ROUTE .COMPLEX Qty: 90 1RF Dose Instruction: TAKE 1 TABLET (500 MG TOTAL) BY MOUTH DAILY. Rx Instructions: TAKE 1 TABLET (500 MG TOTAL) BY MOUTH DAILY. tadalafil 5 mg tablet See Rx Instructions .ROUTE .COMPLEX Qty: 90 1RF Dose Instruction: TAKE 1 TABLET (5 MG TOTAL) BY MOUTH DAILY. Rx Instructions: TAKE 1 TABLET (5 MG TOTAL) BY MOUTH DAILY. Follow-up/Referrals: Elsa Salazar DO [Primary Care Provider] - 1 Week ([facility] care follow up ) Time of Disposition: 11:33
--- OUTSIDE RECORDS SUMMARY | 2024-11-01 11:06 | XMS_ITS | Data Portability ---
Author Organization [facility], [address] [place] [address] [place]rology ([place]) Address [address] [address] Care Team Providers Care Pie Cutter Name Role Phone CARLIE CHATTERJEE Primary Care Provider [phone] Assessment Encounter Date Assessment Date Assessment LastModified [...] his CIMZIA injection at that time. pia Not available 08/13/2024 10:27:50 09/26/2024 09/26/2024 This is a 74-year-old man who presents for evaluation of right lower extremity swelling. I discussed with him that he has already been evaluated for DVT but it is possible he has some venous insufficiency that is contributing to his swelling. I did give him tubi engine pilot and instructed him to wear these daily while awake for compression and elevate his legs 3 times a day above the level of his heart for 15 minutes each session. I will see him back in the clinic in 3 to 4 weeks with a right lower extremity venous reflex study. KIKI [email or web address] Not available 09/26/2024 17:30:17 10/07/2024 10/07/2024 IMPRESSION: 1. 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 2. Osteoarthritis. 3. Raynaud s phenomenon, current clinically stable and well controlled on calcium channel marielos therapy. PLAN: 1. Discontinue nabumetone. 2. Trial of meloxicam 15 mg daily with food. 3. CIMZIA. Continue monthly injectable therapy. He is due for a dose today and will receive this here in our infusion center. 4. Diltiazem prescription per Cardiology. 5. Labs in 3 months including a CBC, CMP and acute phase reactants. 6. Followup visit in 4 months to coincide with his CIMIZIA injection at that time. pia Not available 10/07/2024 16:11:29 Plan of Treatment Reminders Order Date Submit Date Provider Last Modified By Organization Details Last Modified Time Details Appointments Infusion 15.PRO 2024 11:00A M Infusion Not available Not available Not available Imaging 5.PRO 2024 02:30P M Radiology Not available Not available Not available Establis hed Patient 15.EST 2024 02:30P M Dr. Aileen York Not available Not available Not available Lab None recorded . Referral None recorded . Procedures None recorded . Surgeries None recorded . Imaging None recorded . Medication Orders Cimzia 400 mg/2 mL (200 mg/mL x 2) subcutan eous syringe kit 2024 025 sendy [facility] #[id number], [address] [place], [address], 10/07/2024 18:25:22 Cimzia 400 mg/2 mL (200 mg/mL x 2) subcutan eous syringe kit 2024 025 [email or web address] Not available 09/10/2024 21:10:08 Patient TargetsNo targets recorded. Patient InstructionsNo instructions recorded. Reason for Referral None Reported. Results Created Date Observation Date Name Description Value Unit Range Abnormal Flag Note LastModifiedBy Organization Detail LastModifiedTime 08/13/1908/12/2024 CBC CBC Not Available In Only - In Laboratory [address] [place] [address], [id number], 08/12/2024 16:08:24 08/13/19 25 08/12/2024 CBC WBC 6.2 K/uL 4.8- 10.8 Not Available Sc Only - Sc Laboratory [address] [place] [address], [address], 08/12/2024 16:08:24 08/13/19 25 08/12/2024 CBC RBC 3.97 M/uL 4.70-6 .10 low Not Available Sc Only - Sc Laboratory [address] [place] [address], [address], 08/12/2024 16:08:24 08/13/19 25 08/12/2024 CBC HGB 12.6 g/dL 14.0-1 8.0 low Not Available Sc Only - Sc Laboratory [address] [place] [address], [address], 08/12/2024 16:08:24 08/13/19 25 08/12/2024 CBC HCT 38.4 % 42.0-5 2.0 low Not Available Sc Only - Sc Laboratory [address] [place] [address], [address], 08/12/2024 16:08:24 08/13/19 25 08/12/2024 CBC MCV 96.7 fL 80.0-9 4.0 high Not Available Sc Only - Sc Laboratory [address] [place] [address], [address], 08/12/2024 16:08:24 08/13/19 25 08/12/2024 CBC MCH 31.7 pg 27.0- 31.0 high Not Available Sc Only - Sc Laboratory [address] [place] [address], [address], 08/12/2024 16:08:24 08/13/19 25 08/12/2024 CBC MCHC 32.8 g/dL 32.0-3 6.0 Not Available Sc Only - Sc Laboratory [address] [place] [address], [address], 08/12/2024 16:08:24 08/13/19 25 08/12/2024 CBC RDW-SD 55.2 fL 35.1 - 46.3 high Not Available Sc Only - Sc Laboratory [address] [place] [address], [address], 08/12/2024 16:08:24 08/13/19 25 08/12/2024 CBC plt 231 K/uL 130-40 0 Not Available In Only - In Laboratory [address] [place] [address], [address], 08/12/2024 16:08:24 08/13/19 25 08/12/2024 CBC MPV 10.4 fL 7.5- 11.8 Not Available In Only - In Laboratory [address] [place] [address], [address], 08/12/2024 16:08:24 08/13/19 25 08/12/2024 ESR (eryt hrocy te sedim entat ion rate) , blood sed rate 27 mm/HR 0 - 20 high Not Available In Only - In Laboratory [address] [place] [address], [address], 08/12/2024 16:24:29 08/13/19 25 08/12/2024 CMP, serum or plasm a comp. met. panel Not Available In Onl y - In Laboratory [address] [place] [address], [address], 08/12/2024 16:26:32 08/13/19 25 08/12/2024 CMP, serum or plasm a sodium 137 mmol/ L 136-14 6 Not Available In Only - In Laboratory [address] [place] [address], [address], 08/12/2024 16:26:32 08/13/19 25 08/12/2024 CMP, serum or plasm a potassium 4.0 mmol/ L 3.5-5. 1 Not Available In Only - In Laboratory [address] [place] [address], [address], 08/12/2024 16:26:32 08/13/19 25 08/12/2024 CMP, serum or plasm a chloride 101 mmol/ L 98-110 Not Available In Only - In Laboratory [address] [place] [address], [address], 08/12/2024 16:26:32 08/13/19 25 08/12/2024 CMP, serum or plasm a CO2 27 mEq/L 20-32 Not Available In Only - In Laboratory [address] [place] [address], [address], 08/12/2024 16:26:32 08/13/19 25 08/12/2024 CMP, serum or plasm a anion gap 13 mmol/ L 10- Not Available In Only - In Laboratory [address] [place] [address], [address], 08/12/2024 16:26:32 08/13/19 25 08/12/2024 CMP, serum or plasm a glucose 83 mg/dL 70-100 Not Available In Only - In Laboratory [address] [place] [address], [address], 08/12/2024 16:26:32 08/13/19 25 08/12/2024 CMP, serum or plasm a calcium 9.3 mg/dL 8.4-10 .4 Not Available In Only - In Laboratory [address] [place] [address], [address], 08/12/2024 16:26:32 08/13/19 25 08/12/2024 CMP, serum or plasm a total protein 7.2 g/dL 6.4-8. 3 Not Available In Only - In Laboratory [address] [place] [address], [address], 08/12/2024 16:26:32 08/13/19 25 08/12/2024 CMP, serum or plasm a albumin 4.4 g/dL 3.5-5. 3 Not Available In Only - In Laboratory [address] [place] [address], [address], 08/12/2024 16:26:32 08/13/19 25 08/12/2024 CMP, serum or plasm a ALP 133 U/L 44 - 127 high Not Available In Only - In Laboratory [address] [place] [address], [address], 08/12/2024 16:26:32 08/13/19 25 08/12/2024 CMP, serum or plasm a AST (SGOT) 28 U/L 10-40 Not Available In Only - In Laboratory [address] [place] [address], [address], 08/12/2024 16:26:32 08/13/19 25 08/12/2024 CMP, serum or plasm a total bilirubin 0.5 mg/dL 0.2-1. 2 Not Available In Only - In Laboratory [address] [place] [address], [address], 08/12/2024 16:26:32 08/13/19 25 08/12/2024 CMP, serum or plasm a ALT (SGPT) 20 U/L 8-35 Not Available [facility] - In Laboratory [address] [place] [address], [address], 08/12/2024 16:26:32 08/13/19 25 08/12/2024 CMP, serum or plasm a BUN 17 mg/dL 7-21 Not Available [facility] - In Laboratory [address] [place] [address], [address], 08/12/2024 16:26:32 08/13/19 25 08/12/2024 CMP, serum or plasm a creatinine 0.9 mg/dL 0.7-1. 3 Not Available [facility] - In Laboratory [address] [place] [address], [address], 08/12/2024 16:26:32 08/13/19 25 08/12/2024 CMP, serum or plasm a CKD-epi GFR 90 eGFR was calcu lated using the 2020 CKD-E PI equat ion. (Transportation Planner wendy Kidne y Disea se has an eGFR less than 60 mL/mi n/1.7 3mm for a perio d of three month s or more. ) This calcu latio n has not been valid ated for patie nt ages <18 or >90 years old. Not Available Sc Only - In Laboratory [address] [place] [address], [address], 08/12/2024 16:26:32 08/13/19 25 08/12/2024 C-butch ctive prote in, quant itati ve, serum or plasm a CRP Not Available In Only - In Laboratory [address] [place] [address], [address], 08/12/2024 16:26:34 08/13/19 25 08/12/2024 C-butch ctive prote in, quant itati ve, serum or plasm a CRP <0.5 mg/dL <0.4-0 .5 Not Available In Only - In Laboratory [address], [address], 08/12/2024 16:26:34 09/06/19 US, doppl er, venou s No observ ation record ed. odeets Not Available 2024 13:56:51 Result Notes None recorded. Problems Name Problem SNOMED Code Status Onset Date Resolution Date Notes Provider Name and Address Organization Details Recorded Time Central retinal artery occlusion 24317617 Active 2023 Mohan Rodriguez MD [address] [place] [address], [address], [facility] 4 12:13:31 Seronegativ e rheumatoid arthritis 538309227 Active 2023 Mohan Rodriguez MD [address] [place] [address], [address], [facility] 5 11:51:50 Pain of left hip joint 6998444182009 00 Active 2023 Hernandez Shore [facility] 4 09:39:39 Lumbar radiculopat hy 213846126 Active 2023 Mohan Rodriguez MD [address] [place] [address], [address], [facility] 4 12:34:22 Low back pain 269719832 Active 2023 Hernandez Shore null, [facility] 4 09:41:12 Acute sinusitis 62878820 Active 2023 Hernandez Shore null, [facility] 4 09:47:52 Anemia 520184478 Active 2023 Joyce Ayala null, [facility] 4 12:48:41 Swelling of right lower limb 013331023 Active 2024 Mohan Rodriguez MD [address], [place], [address], [facility] 5 11:52:00 Generalized osteoarthri tis 797683343 Active 2024 Mohan Rodriguez MD [address], [place], [address], [facility] 5 11:52:08 Degeneratio n of lumbar interverteb ral disc 65131298 Active 2023 Mohan Rodriguez MD [address], [place], [address], [facility] 4 12:55:09 Seronegativ e rheumatoid arthritis of multiple joints 2165669630086 09 Active 2023 [facility] 4 14:36:13 Renal insufficien cy 629553204 Active 2023 [facility] 4 14:37:38 Ulcerative colitis 48651547 Active 2023 [facility] 4 14:38:43 Osteoarthri tis 437995230 Active 2023 [facility] 4 14:39:30 Polyarthrop athy 20285118 Active 2023 Kathia Szymanski [facility] 4 14:45:41 Undifferent iated inflammator y arthritis 664215432 Active 2023 [facility] 4 14:46:59 Peripheral vascular disease 110118280 Active 2023 [facility] 4 14:47:32 Problem Notes None recorded. Procedures Surgical History Date Name Laterality Status Provider Name and Address Organization Details Recorded Time 5 SC 800 Infusion Record-Rheum completed Malika [facility] 10/07/2024 13:23:07 5 SC 800 Infusion Record-Rheum completed Malika [facility] 09/10/2024 12:20:39 5 SC 800 Infusion Record-Rheum completed Malika [facility] 08/12/2024 13:14:31 5 SC 800 Infusion Record-Rheum completed Vonda Wilde [facility] 07/15/2024 12:51:58 5 SC 800 Infusion Record-Rheum completed Malika [facility] 06/12/2024 12:23:07 4 SC 800 Infusion Record-Rheum completed Malika [facility] 05/13/2024 14:13:07 4 SC 800 Infusion Record-Rheum active Malika [facility] 04/15/2024 13:10:15 4 SC 800 [facility]fusion [facility]um [facility] 13:31:38 4 SC 800 Infusion Record-Rheum [facility]24 12:53:42 4 SC 800 Infusion Record-Rheum completed Malika [facility] 01/22/2024 13:08:23 4 SC 800 Infusion Record-Rheum [facility]2023 12:44:36 4 SC 800 Infusion Record-Rheum completed [facility] 11/16/2023 12:38:23 4 SC 800 Infusion Record-Rheum completed [facility] 10/20/2023 13:08:42 4 SC 800 Infusion Record-Rheum completed [facility] 09/22/2023 15:24:51 Imaging Results None recorded. Procedure Notes None recorded. Medical Equipment None Reported. Allergies Allergen ID Allergen Name Allergen Category Reaction Reaction Severity Criticality Documentation Date Start Date Code Code System Note Provider Name and Address Organization Details Recorded Time 029550 hydroxych loroquine sulfate medicatio n other Not available Not available 07/03/20232016 28926 2 RxNorm React ion: Visua l Distu rbanc e; Comme nt: Annot ation s: DEA DIAZ 2022 2:28P M CELSO LEHMAN S; ; [facility] Available [facility] 23:31[facility]59 Medications Name Sig Start Date Stop Date Status Note LastModified by Organization Details LastModified Time atorvasta tin 40 mg tablet TAKE 1 TABLET BY MOUTH NIGHTLY AT BEDTIME active Not Available Not Available No t Available prednison e 10 mg tablet TAKE 4 TABS DAILY X 2 DAYS, 3 TABS DAILY X 2 DAYS, 2 TABS DAILY X 2 DAYS, THEN 1 TAB DAILY X 2 DAYS 09/26 completed Not Available Not Available Not Available benzonata te 200 mg capsule TAKE 1 CAPSULE BY MOUTH 3 TIMES A DAY NEEDED FOR COUGH 08/12 completed Not Available Not Available Not Available hydrocodo ne 5 mg-acetam inophen 325 mg tablet TAKE 1 TABLET BY MOUTH EVERY 4 HOURS NEEDED 09/26 completed Not Available Not Available Not Available Claritin 10 mg tablet Take 1 tablet every day by oral route as needed. 09/26 completed Not Available Not Available Not Available diltiazem CD 240 mg capsule,e xtended release 24 hr TAKE 1 CAPSULE BY MOUTH EVERY DAY active Not Available Not Available No t Available meloxicam 15 mg tablet TAKE 1 TABLET BY MOUTH DAILY TAKE WITH FOOD active Not Available Not Available No t Available valacyclo vir 500 mg tablet TAKE 1 TABLET (500 MG TOTAL) BY MOUTH DAILY. active Not Available Not Available No t Available methotrex ate sodium 25 mg/mL injection solution ONCE WEEKLY TAKE 0.3 mL IN WATER OR JUICE 09/25 completed Not Available Not Available Not Available diltiazem 120 mg tablet TAKE 1 TABLET BY MOUTH NIGHTLY AT BEDTIME. active Not Available Not Available No t Available benzonata te 100 mg capsule TAKE 1 CAPSULE BY MOUTH THREE TIMES A DAY NEEDED FOR COUGH 09/26 completed Not Available Not Available Not Available aspirin 81 mg chewable tablet CHEW 1 TABLET BY MOUTH DAILY. active Not Available Not Available No t Available folic acid 1 mg tablet Take 1 tablet every day by oral route. active Not Available Not Available No t Available hydroxych loroquine 200 mg tablet TAKE 1 TABLET BY MOUTH EVERY DAY 12/24 completed Not Available Not Available Not Available methylpre dnisolone 4 mg tablets in a dose pack TAKE 6 TABLETS ON DAY 1 DIRECTED ON PACKAGE AND DECREASE BY 1 TAB EACH DAY FOR A TOTAL OF 6 DAYS 09/26 completed Not Available Not Available Not Available fluticaso ne propionat e 50 mcg/actua tion nasal spray,goyo pension USE 2 SPRAYS IN EACH NOSTRIL EVERY DAY 09/26 completed Not Available Not Available Not Available ipratropi um bromide 21 mcg (0.03 %) nasal spray SPRAY 2 SPRAYS INTO EACH NOSTRIL TWICE A DAY 09/26 completed Not Available Not Available Not Available amoxicill in 875 mg-potass ium clavulana te 125 mg tablet TAKE 1 TABLET BY MOUTH EVERY 12 HOURS FOR 10 DAYS 09/26 completed Not Available Not Available Not Available nabumeton e 500 mg tablet TAKE 1 TABLET TWICE A DAY BY ORAL ROUTE WITH MEAL(S). 10/07 completed replaced with meloxica m Not Available Not Available Not Available methotrex ate sodium (PF) 25 mg/mL injection solution TAKE ONCE WEEKLY TAKE 0.3 ML IN WATER OR JUICE active Not Available Not Available No t Available tadalafil 5 mg tablet TAKE 1 TABLET (5 MG TOTAL) BY MOUTH DAILY. active Not Available Not Available No t Available Stool Softener DIRECTED active Not Available Not Available No t Available mesalamin e 1.2 gram tablet,de layed release TAKE 2 TABLETS DAILY WITH BREAKFAS T WITH FOOD active Not Available Not Available No t Available budesonid e-formote rol HFA 80 mcg-4.5 mcg/actua tion aerosol inhaler PLEASE SEE ATTACHED FOR DETAILED DIRECTIO NS active Not Available Not Available No t Available Cimzia 400 mg/2 mL (200 mg/mL x 2) subcutane ous syringe kit Inject 2 mL every 4 weeks by subcutan eous route. 2024 active Not Available Not Available Not Avai lable sodium,po tassium,m ag sulfates 17.5 gram-3.13 gram-1.6 gram oral soln TAKE 177ML BY MOUTH EVERY 12 HOURS FOR 1 DAY TAKE DIRECTED IN THE INSTRUCT IONS 12/21 completed Not Available Not Available Not Available BD Insulin Syringe Ultra-Fin e 1 mL 31 gauge x 10/18 USE NEEDED ONCE WEEKLY WITH METHOTRE XATE LIQUID active Not Available Not Available No t Available Vitals Date Recorded Body height Body mass index (BMI) Body weight Heart rate Oxygen saturation Oxygen saturation in Arterial blood by Pulse oximetry Systolic blood pressure Diastolic blood pressure Provider Name and Address Organization Details Last Updated DateTime 5 167.64 cm 26.8 kg/m2 04536.3 3 g 66 /min 91 % 91 % 124 mm[Hg] 80 mm[Hg] Luzma moreau [facility] 5 11:10:58 Date Recorded Body height Heart rate Respiratory rate Oxygen saturation Oxygen saturation in Arterial blood by Pulse oximetry Systolic blood pressure Diastolic blood pressure Provider Name and Address Organization Details Last Updated DateTime 5 167.64 cm 72 /min 20 /min 97 % 97 % 158 mm[Hg] 88 mm[Hg] Azeb Carroll [facility] 5 14:36:17 Date Recorded Body height Body mass index (BMI) Body weight Heart rate Oxygen saturation Oxygen saturation in Arterial blood by Pulse oximetry Systolic blood pressure Diastolic blood pressure Provider Name and Address Organization Details Last Updated DateTime 5 167.64 cm 27.4 kg/m2 50702.7 g 58 /min 97 % 97 % 110 mm[Hg] 60 mm[Hg] Arnie Wilkerson [facility] 5 12:06:38 Social History Question Answer Notes LastModified by Organizat ion Details LastModified Time Tobacco Smoking Status Former Smoker Joyce Ayala [facility] 04/02/2024 12:03:20 How Many Packs Per [...] Organization Details Recorded Time zoster recombinant 9 [facility] Lina Rodríguez [facility] 09/05/2023 09:15:38 zoster recombinant 9 [facility] Lina Rodríguez [facility] 09/05/2023 09:15:38 Pneumococcal conjugate PCV 13 0 [facility] Lina Rodríguez [facility] 09/05/2023 09:15:38 Influenza, high-dose, trivalent, PF 9 [facility] Lina Rodríguez [facility] 09/05/2023 09:15:38 Influenza, split virus, trivalent, [facility] 09/05/2023 09:15:38 Past Encounters Encounter ID Performer Location Encounter Start Date Encounter Closed Date Diagnosis/Indication Diagnosis SNOMED-CT Code Diagnosis ICD10 Code Diagnosis Note [id number] Mohan Rodriguez MD 800 [facility] [place] [place] [address] [place] [address] 09/05/2023 08:58:16 09/05/2023 13:52:30 Polyarthropathy 60075168 M13.0 Seronegati ve rheumatoid arthritis 628085891 M06.09 Lumbar radiculopathy 128 951768 M54.16 Osteoarthritis 744857669 M19.90 Ulcerative colitis 78315 004 K51.919 High risk medication monitoring indicated 5992692388 7605267 Z76.89 Z79.631 Pain of le ft hip joint 3389673975 92838 M25.021 [id number] Mohan Rodriguez MD [facility] [address] [place] [address],[address] [place] [address] 09/22/2023 13:13:48 09/22/2023 16:45:50 Polyarthropathy 20896738 M13.0 [id number] Mohan Rodriguez MD 800 [facility] [address] [place] [address],[address] [place] [address] 10/20/2023 12:00:32 10/20/2023 13:09:29 Polyarthropathy 19071685 M13.0 [id number] Luis Ferreira MD 800 [facility] [address] [place] [address],[address] [place] [address] 11/16/2023 11:18:44 11/16/2023 13:09:16 Polyarthropathy 09270804 M13.0 [id number] Mohan Rodriguez MD [facility] [address] [place] [address],[address] [place] [address] 12/25/2023 11:16:29 12/25/2023 13:50:12 Osteoarthritis 359859729 M19.90 Degenerati on of lumbar intervertebral disc 34525776 M51.36 Rheumatoid arthritis of multiple joints 689691399 M06.89 Long-term drug therapy 468557350 Z79.203 [id number] Mohan Rodriguez MD 800 [facility] [address] [place] [address],[address] [place] [address] 12/25/2023 11:16:29 12/25/2023 13:50:12 Polyarthropathy 09281837 M13.0 [id number] Mohan Rodriguez MD 800 [facility] [address] [place] [address],[address] [place] [address] 01/22/2024 11:56:04 01/22/2024 13:05:04 Polyarthropathy 11063186 M13.0 [id number] Mohan Rodriguez MD [facility] [place] [address] [place] [address] 01/26/2024 10:51:33 01/26/2024 18:17:42 Central retinal artery occlusion 40710882 H34.10 Osteoarthritis 028403592 M19.90 Rheumatoid arthritis of multiple joints 196597547 M05.89 Additional diagnosis detail: Other rheumatoid arthritis with rheumatoid factor of multiple sites snf methotrexate user 0945092966 00 Z79.241 [id number] Mohan Rodriguez MD 800 [facility] [address] [place] [address] 02/19/2024 11:42:30 02/21/2024 11:13:45 Polyarthropathy 36818254 M13.0 [id number] Mohan Rodriguez MD 800 [facility] [address] [place] [address] 03/18/2024 11:43:05 03/18/2024 13:33:47 Polyarthropathy 85849098 M13.0 [id number] Mohan Rodriguez MD [facility] [place] [address] [place] [address] 04/02/2024 11:27:00 04/02/2024 18:18:45 Seronegative rheumatoid arthritis 947801762 M06.09 Ulcerative colitis 55855 004 K51.919 Osteoarthritis 567786340 M19.90 Lumbar radiculopathy 128 349095 M54.16 [id number] Mohan Rodriguez MD 800 [facility] [address] [place] [address] 05/13/2024 10:49:12 05/13/2024 14:13:57 Polyarthropathy 16718422 M13.0 [id number] Mohan Rodriguez MD 800 [facility] [place] [address] [place] [address] 06/12/2024 09:59:26 06/12/2024 12:25:11 Polyarthropathy 55070334 M13.0 [id number] Mohan Rodriguez MD 800 [facility] [place] [address] [place] [address] 07/15/2024 11:48:03 07/15/2024 12:53:20 Polyarthropathy 30943866 M13.0 [id number] Mohan Rodriguez MD [facility] [address] [place] [address] 08/12/2024 10:58:16 08/13/2024 18:21:59 Seronegative rheumatoid arthritis 869994108 M06.00 Swelling o f right lower limb 040283811 M79.89 Generalize d osteoarthritis 978115128 M15.9 [id number] Mohan Rodriguez MD 800 [facility] [address] [place] [address] 08/12/2024 12:43:25 08/12/2024 13:18:30 Polyarthropathy 91563899 M13.0 [id number] Luis Ferreira MD 800 [facility] [address] [place] [address] 09/10/2024 11:00:23 09/10/2024 12:21:36 Polyarthropathy 55074089 M13.0 [id number] Aileen York MD 800 [facility] [address] [place] [address] 09/26/2024 14:16:37 09/26/2024 14:55:12 Swelling of right lower limb 842358432 M79.89 [id number] Mohan Rodriguez MD 800 [facility] [address] [place] [address] 10/07/2024 11:04:42 10/07/2024 13:25:38 Polyarthropathy 06944748 M13.0 Seronegati ve rheumatoid arthritis 832813895 M06.00 [id number] Mohan Rodriguez MD 800 [facility] [place] [address] [place] [address] 10/07/2024 11:04:42 10/07/2024 13:25:38 Seronegative rheumatoid arthritis 819621597 M06.00 Osteoarthritis [id number] M19.90 Low back pain [id number] M54.50 Health Concerns Section Related Observation LastModified by Organization Detmed ls LastModified Time None Recorded Concern Status LastModified by Organization Details LastModified Time None Recorded Advance Directives Directive None Recorded Payers Insurance Date Sequence Insurance Name Policy Number Policy Milligan Covered Member ID Milligan Member ID Guarantor Name 10/30/2024 2 [place] 105 Raul Avitia [id number] Raul Sadi 10/03/2024 1 [place] Raul Avitia [id number] Raul Avitia Notes Date Note Type Note [...] colitis. He recently underwent labs at the [facility] by his new primary care provider, Dr. [...] He has not noticed any foot drop.pia Rodriguez MD [address] [place] [address], [phone], [facility] 08/14/2024 20:46:17 09/26/2024 text/html This is a 74-year-old man who presents for an evaluation of right lower extremity swelling. He started noticing swelling in his right leg 3 to 4 months ago. He states it has been the same for the last several months. He states it is essentially normal size when he wakes up but then the swelling would occur during the day. He states he purchased some compression stockings and wore them briefly but they did not seem to help so he stopped wearing them. He did have a venous duplex study performed at an outside hospital when he first had the swelling and it was negative for DVT. He denies any wounds or ulcerations on his lower extremities and he denies any other history of lower extremity swelling. Aileen York MD [address] [place] [address], [phone], [facility] 09/30/2024 10:30:55 10/07/2024 text/html The patient is a 74-year-old gentleman with seronegative RA and osteoarthritis, who is here today for a followup visit. At last visit he was having issues with right lower extremity swelling. We did obtain a venous Doppler study that was negative for DVT. He has been seen by Dr. York and currently is undergoing further workup for deep venous studies. He is using a compression hose on the leg, which helps reduce the swelling. He does report that the right leg swelling is down in the morning and becomes more of an issue as the day goes on. As regard to his RA, he reports just 5 minutes of morning stiffness and he is encountering some pain generally in the lower back and hips, as well as hands and wrists, 5/10 on a scale, exacerbated by recent weather changes. He continues on nabumetone along with his low dose methotrexate and CIMZIA injection therapy. He has had to go off the nabumetone for sinus surgery last month and reports despite being off it for 3-4 weeks he could not tell a difference in terms of control of joint stiffness and pain. He did have labs on September 24, 2024, including a CBC and CMP, both of which are normal. he reports overall his ulcerative colitis has been very stable. He has had no issues or hematochezia, cough or wheezing. He has had no skin rash or pruritus. His Raynaud symptoms have been relatively quiescent. He does continue on termite treater long acting calcium channel marielos therapy though his heel finisher has taken over prescribing this medication. He had started it many years ago with Dr. Zabala prior to my taking over his care. He tolerates it well without constipation. He denies any swelling in the left lower extremity. It is just on his right side.pia Rodriguez MD [address] [facility], [place], [phone], [facility] 10/08/2024 13:59:08
--- OUTSIDE RECORDS SUMMARY | 2024-11-01 11:09 | XMS_ITS | Continuity of Care Document ---
Author Organization [facility] Address [address] [place] [address] Phone Care Team Providers Care Shipper Receiver Name Role Phone Magdalena Hernandes OD Unavailable [...] - Active Procedures Procedure Date Eye Exam [facility] 16 Advance Directives Directive Yes / No Effective Date File Name No Information Encounters Encounter Description Practice Location Reason(s) For Visit Diagnoses Date Provider Providers Copied on Encounter [facility], [address] [place] [address], [facility], tel: [phone] [facility] No Information 6 Cecilio Nichols. [address] [place] [address], [id number]. tel: [phone] [facility], [address] [place] [address], [id number], [place] tel: [phone] [facility] Age-related nuclear cataract, bilateralMyopia, bilateralRegular astigmatism, bilateralPresbyopiaCo njunctival hemorrhage, left eye 6 Cecilio Magdalena. [address] [place] [address], [id number]. tel: [phone] [facility], [address] [place] [address], [facility], tel: [phone] [facility] No Information 6 Cecilio Nichols. [address] [place] [address], [facility]. tel: [phone] [facility], [address] [place] [address], [facility], [place] tel: [phone] [facility] No Information 6 Maritza Salmon. [address] [place] [address], [facility]. tel: [phone] Family History Family Member Type Diagnosis Age [...]
[2024-11-01 11:13] LABS: EDUAAPPEAR Clear; EDUABILI Negative (Negative); EDUABLOOD Negative (Negative); EDUACOLOR1 Yellow; EDUAGLUCOSE Negative (Negative); EDUAKETONE Negative (Negative); EDUALEUKO 1+ (Negative); EDUANITRATE Negative (Negative); EDUAPROTEIN Negative (Negative); EDUAUROBILI 0.2
== END 2024-11-01 11:34 | disposition home or self-care (01) ==
PROVIDERS: Emergency Provider Nurse Practitioner; PCP Family Medicine
DX: N39.0 Urinary tract infection, site not specified (principal); M06.9 Rheumatoid arthritis, unspecified; Z96.652 Presence of left artificial knee joint; Z98.52 Vasectomy status; Z87.891 Personal history of nicotine dependence; Z79.82 Long term (current) use of aspirin
CPT/HCPCS: 81003; 87086; 87181; 99213; G0463